=== PATIENT | female | born 1955 | race Caucasian/White ===

== ENCOUNTER 2018-02-13 10:36 | Inpatient (IN) | payer SELFPAY ==
[2018-02-13] MEDS ORDERED: IPRATROPIUM/ALBUTEROL 0.5-2.5 MG/3 ML AMPUL NEB ONE (10:57)
--- NOTE | 2018-02-13 11:00 | ER Document Report ---
ED General - General Chief Complaint: Cough Stated Complaint: SHORTHNESS OF BREATH Time Seen by Provider: 02/13/18 10:40 Mode of Arrival: Ambulatory Information source: Patient Notes: 62-year-old female history of asthma presents with complaints of shortness of breath over the past few days. Patient notes productive cough. Patient took a breathing treatment at home was given to by EMS. She denies any fevers or chills notes she has never been admitted for her asthma TRAVEL OUTSIDE OF THE [place] IN LAST 30 DAYS: No - HPI Onset: Other - 2-3 day duration Onset/Duration: Persistent, Worse Quality of pain: Achy Severity: Mild Pain Level: 1 Associated symptoms: Nonproductive cough, Shortness of breath Exacerbated by: Coughing Relieved by: Denies Similar symptoms previously: No Recently seen / treated by doctor: Yes - Patient has been seen for laceration left leg - Related Data Allergies/Adverse Reactions: No Known Allergies Allergy (Unverified 02/13/18 11:21) Past Medical History - Social History Smoking Status: Never Smoker Cigarette use (# per day): No Chew tobacco use (# tins/day): No Smoking Education Provided: No Family History: Reviewed & Not Pertinent Review of Systems - Review of Systems Notes: REVIEW OF SYSTEMS: CONSTITUTIONAL : Denies fever, chills, or sweats. Denies recent illness. EENT: Denies eye, ear, throat, or mouth pain or symptoms. Denies nasal or sinus congestion or discharge. Denies throat, tongue, or mouth swelling or difficulty swallowing. CARDIOVASCULAR: Denies chest pain. Denies palpitations or racing or irregular heart beat. Denies ankle edema. RESPIRATORY: Miss shortness breath wheezing cough GASTROINTESTINAL: Denies abdominal pain or distention. Denies nausea, vomiting , or diarrhea. Denies blood in vomitus, stools, or per rectum. Denies black, tarry stools. Denies constipation. GENITOURINARY: Denies difficulty urinating, painful urination, burning, frequency, blood in urine, or discharge. FEMALE GENITOURINARY: Denies vaginal bleeding, heavy or abnormal periods, irregular periods. Denies vaginal discharge or odor. MUSCULOSKELETAL: Denies back or neck pain or stiffness. Denies joint pain or swelling. SKIN: Denies rash, lesions or sores. HEMATOLOGIC : Denies easy bruising or bleeding. LYMPHATIC: Denies swollen, enlarged glands. NEUROLOGICAL: Denies confusion or altered mental status. Denies passing out or loss of consciousness. Denies dizziness or lightheadedness. Denies headache. Denies weakness or paralysis or loss of use of either side. Denies problems with gait or speech. Denies sensory loss, numbness, or tingling. Denies seizures. PSYCHIATRIC: Denies anxiety or stress. Denies depression, suicidal ideation, or homicidal ideation. ALL OTHER SYSTEMS REVIEWED AND NEGATIVE. PHYSICAL EXAMINATION: GENERAL: Well-appearing, well-nourished and in no acute distress. HEAD: Atraumatic, normocephalic. EYES: Pupils equal round and reactive to light, extraocular movements intact, conjunctiva are normal. ENT: Nares patent, oropharynx clear without exudates. Moist mucous membranes. NECK: Normal range of motion, supple without lymphadenopathy LUNGS: Worse wheezing all throughout patient satting anywhere between 90% to 95% HEART: Regular rate and rhythm without murmurs ABDOMEN: Soft, nontender, nondistended abdomen. No guarding, no rebound. No masses appreciated. Female : deferred Musculoskeletal: Normal range of motion, no pitting or edema. No cyanosis. NEUROLOGICAL: Cranial nerves grossly intact. Normal speech, normal gait. Normal sensory, motor exams PSYCH: Normal mood, normal affect. SKIN: Warm, Dry, normal turgor, no rashes or lesions noted. Dictation was performed using [employer] voice recognition software Physical Exam - Vital signs Vitals: Resp Pulse Ox 24 H 93 02/13/18 10:45 02/13/18 10:45 Course - Re-evaluation Re-evalutation: 02/13/18 11:00 Dyspnea workup pending patient is resting comfortably but her O2 sats do drop to 90%, after clearing her self it does go up to 95 02/13/18 12:08 pt already given solumedrol, ambulated satting 84% pt to be admitted ot hospitalist service - Vital Signs Vital signs: Temp Pulse Resp BP Pulse Ox 98.6 F 17 128/75 H 90 L 02/13/18 11:21 02/13/18 11:01 02/13/18 11:00 02/13/18 11:01 - Laboratory Result Diagrams: 02/13/18 10:50 02/13/18 10:50 Laboratory results interpreted by me: 02/13/18 02/13/18 02/13/18 10:50 10:50 11:30 WBC 11.9 H RDW 14.2 H Seg Neutrophils % 89.0 H Lymphocytes % 6.2 L Absolute Neutrophils 10.6 H Sodium 145.7 H Glucose 144 H Ur Leukocyte Esterase TRACE H Urine Ascorbic Acid 20 H - Diagnostic Test Radiology reviewed: Image reviewed - copd exacerbation 2 view chest xray, Reports reviewed Critical Care Note - Critical Care Note Total time excluding time spent on procedures (mins): 34 Comments: minutes of critical care time spent in direct contact evaluating and reevaluating the patient, treating symptoms, reviewing labs and studies and speaking with family and consultants excluding any procedures Discharge - Discharge Clinical Impression: COPD exacerbation, Hypoxemia Condition: Stable Admitting Provider: Hospitalist Unit Admitted: Medical Floor
[2018-02-13 11:12] LABS: ABSOLUTE BASOPHILS # (AUTO) 0.1 10^3/uL (0.0-0.2); ABSOLUTE LYMPHOCYTES (AUTO) 0.7 10^3/uL (0.5-4.7); ABSOLUTE MONOCYTES (AUTO) 0.5 10^3/uL (0.1-1.4); ABSOLUTE NEUT (AUTO) 10.6 10^3/uL (1.7-8.2); BASOPHILS % (AUTO) 0.5 % (0-2); EOSINOPHILS % (AUTO) 0.1 % (0-6); LYMPHOCYTES % (AUTO) 6.2 % (13-45); MEAN CORPUSCULAR HEMOGLOBIN 30.6 pg (27.0-33.4); MEAN CORPUSCULAR HGB CONC 32.4 g/dL (32.0-36.0); MEAN CORPUSCULAR VOLUME 95 fl (80-97); MONOCYTES % (AUTO) 4.2 % (3-13); PLATELET COUNT 307 10^3/uL (150-450); RED BLOOD COUNT 3.91 10^6/uL (3.72-5.28); RED CELL DISTRIBUTION WIDTH 14.2 % (11.5-14.0); TOTAL CELLS COUNTED % (AUTO) 100 %; WHITE BLOOD COUNT 11.9 10^3/uL (4.0-10.5)
--- NOTE | 2018-02-13 11:25 | RADIOLOGY REPORT (SQ) ---
EXAM DESCRIPTION: CHEST SINGLE VIEW COMPLETED DATE/TIME: 02/13/2018 11:14 am REASON FOR STUDY: dyspnea COMPARISON: None. NUMBER OF VIEWS: One view. TECHNIQUE: Single frontal radiographic view of the chest acquired. LIMITATIONS: None. FINDINGS: LUNGS AND PLEURA: No opacities, masses or pneumothorax. No pleural effusion. Attenuated bl ood vessels and flattened cherelle-diaphragms. MEDIASTINUM AND HILAR STRUCTURES: No masses. Contour normal. HEART AND VASCULAR STRUCTURES: Heart normal in size. Normal vasculature. BONES: No acute findings. HARDWARE: None in the chest. OTHER: No other significant finding. IMPRESSION: COPD. NO ACUTE RADIOGRAPHIC FINDING IN THE CHEST. TECHNICAL DOCUMENTATION: JOB ID: [id number] [employer]- All Rights Reserved Reading location - IP/workstation name: [email or web address]
[2018-02-13 11:36] LABS: ALANINE AMINOTRANSFERASE 25 U/L (9-52); ALBUMIN 4.5 g/dL (3.5-5.0); ALKALINE PHOSPHATASE 80 U/L (38-126); ANION GAP 19 (5-19); ASPARTATE AMINO TRANSFERASE 26 U/L (14-36); BILIRUBIN,DIRECT 0.4 mg/dL (0.0-0.4); BILIRUBIN,TOTAL 0.4 mg/dL (0.2-1.3); BLOOD UREA NITROGEN 16 mg/dL (7-20); CALCIUM 9.9 mg/dL (8.4-10.2); CARBON DIOXIDE 24 mmol/L (22-30); CHLORIDE 103 mmol/L (98-107); CREATINE KINASE 65 U/L (30-135); GLUCOSE 144 mg/dL (75-110); POTASSIUM 4.6 mmol/L (3.6-5.0); SODIUM 145.7 mmol/L (137-145)
[2018-02-13 12:00] LABS: CREATINE KINASE MB 1.11 ng/mL (<4.55); NT PRO BNP 171 pg/mL (5-900)
[2018-02-13 12:00] LABS: APPEARANCE,URINE CLEAR; BILIRUBIN,URINE NEGATIVE (NEGATIVE); COLOR,URINE YELLOW; GLUCOSE, URINE NEGATIVE (NEGATIVE); KETONES,URINE NEGATIVE (NEGATIVE); LEUKOCYTE ESTERASE,URINE TRACE (NEGATIVE); NITRITE,URINE NEGATIVE (NEGATIVE); PROTEIN,URINE NEGATIVE (NEGATIVE); URINE SPECIFIC GRAVITY 1.016; UROBILINOGEN,URINE NEGATIVE mg/dL (<2.0)
[2018-02-13 12:01] LABS: TROPONIN I < 0.012 ng/mL
[2018-02-13] MEDS ORDERED: METHYLPREDNISOLONE INJ 125 MG/2 ML SDV IV ONE (12:05)
[2018-02-13] MEDS ORDERED: ACETAMINOPHEN 325 MG TABLET PO PRN (12:08)
[2018-02-13] MEDS ORDERED: BENZONATATE 100 MG CAPSULE PO PRN (12:08)
[2018-02-13] MEDS ORDERED: OXYCODONE-ACETAMINOPHEN 5-325 MG TABLET PO PRN (12:08)
[2018-02-13] MEDS ORDERED: ONDANSETRON HCL INJ/PF 4 MG/2 ML SDV IV PRN (12:08)
[2018-02-13] MEDS ORDERED: DEXTROSE 50%-WATER 25 GM/50 ML DISP.SYRIN IV PRN ×2 (12:18)
[2018-02-13] MEDS ORDERED: GLUCAGON,HUMAN RECOMB 1 MG INJ IM PRN (12:18)
[2018-02-13] MEDS ORDERED: DEXTROSE 40% GEL 15 GM TUBE PO PRN ×2 (12:18)
--- NOTE | 2018-02-13 13:04 | PDOC H&P ---
History of Present Illness Admission Date/PCP: February 13, 2018 [facility] Patient complains of: Shortness of breath since midnight History of Present Illness: JOB VARGAS is a 62 year old female arrived to ED via ambulance complaining of shortness of breath which started at midnight. Patient states that she woke up having problems breathing and she had to lean forward in order to be able to breath. She did a nebulizer treatment and also used her inhaler. The rescue squad was called into the house. By the time the rescue squad arrived patient was feeling better and she declined to come to the hospital. Despite shortness of breath progressed and called 911 because she was not going to be able to make it to her PCPs office. Patient admits that for the past 2 days she had been having productive cough of whitish phlegm and some runny nose. She admits history of asthma since she was a child. She smokes off and on. May smoke from 1/2-1 pack per day. She started using a nicotine patch since yesterday. When patient was evaluated in the emergency room she was saturating 91% at 2 L of nasal cannula. Patient was treated with 3 duo nebs. Unfortunately upon ambulation patient desaturated to 84%. Patient denies using oxygen at home. She admits history of diabetes and high blood pressure. Since patient was requiring oxygen and was still short of breath the hospitalist service was consulted and prompted to admit. Past Medical History Cardiac Medical History: Reports: Hypertension Pulmonary Medical History: Reports: Asthma EENT Medical History: Reports: None Neurological Medical History: Reports: None Endocrine Medical History: Reports: Diabetes Mellitus Type 2 Renal/ Medical History: Reports: None Malignancy Medical History: Reports: None GI Medical History: Reports: None Musculoskeltal Medical History: Reports: None Skin Medical History: Reports: None Psychiatric Medical History: Reports: Tobacco Dependency Hematology: Reports: None Infectious Medical History: Reports: None Past Surgical History Past Surgical History: Reports: Tubal Ligation Social History Information Source: Patient Lives with: Spouse/Significant other Smoking Status: Current Every Day Smoker Cigarettes Packs Per Day: 14 Frequency of Alcohol Use: None Hx Recreational Drug Use: Yes Hx Prescription Drug Abuse: Yes - Advance Directive Resuscitation Status: Full Code Family History Family History: DM, Hypertension Parental Family History Reviewed: Yes Children Family History Reviewed: Yes Sibling(s) Family History Reviewed.: Yes Medication/Allergy Home Medications: Albuterol Sulfate [Proair HFA] 1 puff IH DAILY 02/13/18 Atenolol 1 tab PO QAM 02/13/18 Benzonatate 2 cap PO TID 02/13/18 Cetirizine HCl 1 tab PO DAILY 02/13/18 Cyclobenzaprine HCl 1 tab PO DAILY PRN 02/13/18 Enalapril Maleate [Vasotec] 1 tab PO DAILY 02/13/18 Fluticasone Propionate [Flonase Allergy Relief] 1 spray IH DAILY 02/13/18 Glipizide [Glipizide ER] 1 tab PO 02/13/18 Metformin HCl 1 tab PO BID 02/13/18 Montelukast Sodium 1 tab PO DAILY 02/13/18 Pravastatin Sodium 1 tab PO QPM 02/13/18 Prednisolone 1 tab PO BID 02/13/18 Sulfamethoxazole/Trimethoprim [Bactrim Ds Tablet] 1 tab PO BID 02/13/18 Allergies/Adverse Reactions: No Known Allergies Allergy (Unverified 02/13/18 11:21) Review of Systems Constitutional: ABSENT: chills, headache(s), night sweats Ears: ABSENT: hearing changes Cardiovascular: ABSENT: chest pain, dyspnea on exertion, edema, palpitations Respiratory: PRESENT: cough, dyspnea Gastrointestinal: ABSENT: abdominal pain, nausea, vomiting Genitourinary: ABSENT: dysuria, hematuria Musculoskeletal: ABSENT: back pain, joint swelling Integumentary: ABSENT: diaphoresis, pruritus Neurological: ABSENT: confusion, frequent falls Psychiatric: ABSENT: anxiety, depression Endocrine: ABSENT: polydipsia, polyphagia, polyuria Physical Exam Vital Signs: Temp Pulse Resp BP Pulse Ox 98.6 F 17 128/75 H 90 L 02/13/18 11:21 02/13/18 11:01 02/13/18 11:00 02/13/18 11:01 Intake & Output 02/12/18 02/13/18 02/14/18 06:59 06:59 06:59 Weight 63.503 kg General appearance: PRESENT: no acute distress, cooperative, well-developed, well-nourished Head exam: PRESENT: atraumatic, normocephalic Eye exam: PRESENT: conjunctiva pink, EOMI, PERRLA Ear exam: PRESENT: normal external ear exam Mouth exam: PRESENT: moist Neck exam: PRESENT: full ROM. ABSENT: JVD, lymphadenopathy, tenderness, thyromegaly Respiratory exam: PRESENT: crackles - Current crackles left-sided, decreased breath sounds Cardiovascular exam: PRESENT: RRR. ABSENT: diastolic murmur, systolic murmur Vascular exam: PRESENT: normal capillary refill GI/Abdominal exam: PRESENT: normal bowel sounds, soft. ABSENT: tenderness Extremities exam: PRESENT: full ROM. ABSENT: pedal edema Musculoskeletal exam: PRESENT: ambulatory Neurological exam: PRESENT: alert, awake, oriented to person, oriented to place , oriented to time, oriented to situation, CN II-XII grossly intact Psychiatric exam: PRESENT: appropriate affect, normal mood Skin exam: PRESENT: normal color Results Laboratory Results: 02/13/18 10:50 02/13/18 10:50 02/13/18 02/13/18 02/13/18 10:50 10:50 11:30 WBC 11.9 H RBC 3.91 Hgb 12.0 Hct 37.0 MCV 95 MCH 30.6 MCHC 32.4 RDW 14.2 H Plt Count 307 Seg Neutrophils % 89.0 H Lymphocytes % 6.2 L Monocytes % 4.2 Eosinophils % 0.1 Basophils % 0.5 Absolute Neutrophils 10.6 H Absolute Lymphocytes 0.7 Absolute Monocytes 0.5 Absolute Eosinophils 0.0 Absolute Basophils 0.1 Sodium 145.7 H Potassium 4.6 Chloride 103 Carbon Dioxide 24 Anion Gap 19 BUN 16 Creatinine 0.68 Est GFR ( Amer) > 60 Est GFR (Non-Af Amer) > 60 Glucose 144 H Calcium 9.9 Total Bilirubin 0.4 AST 26 ALT 25 Alkaline Phosphatase 80 Total Protein 7.0 Albumin 4.5 Urine Color YELLOW Urine Appearance CLEAR Urine pH 6.0 Ur Specific [place] 1.016 Urine Protein NEGATIVE Urine Glucose (UA) NEGATIVE Urine Ketones NEGATIVE Urine Blood NEGATIVE Urine Nitrite NEGATIVE Ur Leukocyte Esterase TRACE H Urine WBC (Auto) 6 Urine RBC (Auto) 12 02/13/18 02/13/18 10:50 10:50 Creatine Kinase 65 CK-MB (CK-2) 1.11 Troponin I < 0.012 NT-Pro-B Natriuret Pep 171 Impressions: Chest X-Ray 02/13/18 10:41 IMPRESSION: COPD. NO ACUTE RADIOGRAPHIC FINDING IN THE CHEST. Assessment & Plan - Diagnosis (1) Acute respiratory failure Qualifiers: Respiratory failure complication: hypoxia Qualified Code(s): J96.01 - Acute respiratory failure with hypoxia Is this a current diagnosis for this admission?: Yes Plan: We will continue with oxygen supplementation and will wean off as tolerated (2) COPD exacerbation Is this a current diagnosis for this admission?: Yes Plan: Patient will be placed on DuoNeb's, Mucinex, IV steroids and Singulair (3) Tobacco abuse Is this a current diagnosis for this admission?: Yes Plan: Educated about quitting and motivated. She is already using a nicotine patch and will continue (4) Diabetes Qualifiers: Diabetes mellitus type: type 2 Diabetes mellitus jail insulin use: without jail use Diabetes mellitus complication status: without complication Qualified Code(s): E11.9 - Type 2 diabetes mellitus without complications Is this a current diagnosis for this admission?: Yes Plan: Patient will be placed on Humalog sliding scale with bedside glucose before meals and at bedtime (5) HTN (hypertension) Qualifiers: Hypertension type: essential hypertension Qualified Code(s): I10 - Essential (primary) hypertension Is this a current diagnosis for this admission?: Yes Plan: Will continue with outpatient regimen once available to reconcile (6) History of asthma Is this a current diagnosis for this admission?: Yes Plan: Patient carries a history of asthma since childhood. Patient having some symptoms suggestive of allergy related symptoms. Will continue antihistaminic and will add Singulair. After carefully listened to the patient appears to be a COPD exacerbation which is a new diagnosis for this patient and is present in chest x-ray - Time Time Spent: 30 to 50 Minutes Medications reviewed and adjusted accordingly: Yes Anticipated discharge: Home Within: within 48 hours - Inpatient Certification Based on my medical assessment, after consideration of the patient's comorbidities, presenting symptoms, or acuity I expect that the services needed warrant INPATIENT care.: Yes I certify that my determination is in accordance with my understanding of Medicare's requirements for reasonable and necessary INPATIENT services [42 CFR 412.3e].: Yes Medical Necessity: Significant Comorbidiites Make Outpatient Treatment Too Risky , Need Close Monitoring Due to Risk of Patient Decompensation, Need for Nebulizer Therapy and Monitoring of Response
[2018-02-13] MEDS ORDERED: NICOTINE 14 MG/24 HR PATCH.TD24 TD ONE (13:30)
[2018-02-13] MEDS ORDERED: LORATADINE 10 MG TABLET PO ONE (14:00)
[2018-02-13] MEDS: IPRATROPIUM/ALBUTEROL 0.5-2.5 MG/3 ML AMPUL NEB SCH ×2 (14:01→19:43)
[2018-02-13] MEDS: INSULIN LISPRO 100 UNIT/ML 3 ML VIAL SUBCUT PRN ×3 (14:02→23:01)
[2018-02-13] MEDS: HEPARIN SOD (PORCINE) 5,000 UNIT/ML 1 ML SYRINGE SUBCUT SCH ×2 (14:02→22:45)
[2018-02-13] MEDS: ALBUTEROL SULFATE 0.083% NEB 2.5 MG/3 ML AMPUL NEB PRN (16:41)
--- NOTE | 2018-02-13 18:20 | RADIOLOGY REPORT (SQ) ---
EXAM DESCRIPTION: CT CHEST WITHOUT COMPLETED DATE/TIME: 02/13/2018 6:07 pm REASON FOR STUDY: hypoxia COMPARISON: Chest radiograph TECHNIQUE: CT scan performed of the chest without intravenous contrast. Images reviewed with lung, soft tissue and bone windows. Reconstructed coronal and sagittal MPR images reviewed. All images st ored on PACS. All CT scanners at this facility use dose modulation, iterative reconstruction, and/or weight based d osing when appropriate to reduce radiation dose to as low as reasonably achievable (ALARA). [facility]: Dose Right [facility]: CareDose [facility]: Dose Right [facility]: Teradose 4D [facility]: Smart Ensogo RADIATION DOSE: CT Rad equipment meets quality standard of care and radiation dose reduction techniq ues were employed. CTDIvol: 5.0 mGy. DLP: 209 mGy-cm. mGy. LIMITATIONS: No technical limitations. FINDINGS: LUNGS AND PLEURA: No masses, infiltrates, pneumothorax. No pleural effusions, calcificati ons. HILAR AND MEDIASTINAL STRUCTURES: No identified masses or abnormal nodes. No obvious aneurysm. HEART AND VASCULAR STRUCTURES: No aneurysm. No pericardial effusion. UPPER ABDOMEN: No significant findings. Limited exam. THYROID AND OTHER SOFT TISSUES: No masses. No adenopathy. BONES: No significant finding. HARDWARE: None in the chest. OTHER: No other significant findings. IMPRESSION: NO SIGNIFICANT FINDING ON NON-CONTRASTED CHEST CT. TECHNICAL DOCUMENTATION: JOB ID: [id number] Quality ID # [id number]: Final reports with documentation of one or more dose reduction techniques (e.g., Au tomated exposure control, adjustment of the mA and/or kV according to patient size, use of iterative reconstruction technique) 2010 [employer]- All Rights Reserved Reading location - IP/workstation name: [email or web address]
[2018-02-13] MEDS: GUAIFENESIN 600 MG TABLET.SA PO SCH (18:38)
--- NOTE | 2018-02-13 21:38 | EKG REPORT ---
SEVERITY:- ABNORMAL ECG - SINUS TACHYCARDIA CONSIDER ANTEROSEPTAL INFARCT : Confirmed by: Debbie Orlando 13-Feb-2018 21:38:04
[2018-02-13] MEDS: METHYLPREDNISOLONE INJ 40 MG/1 ML SDV IV SCH (22:45)
[2018-02-13] MEDS: MONTELUKAST SODIUM 10 MG TABLET PO SCH (22:45)
[2018-02-13] MEDS: ZOLPIDEM TARTRATE 5 MG TABLET PO PRN (23:01)
[2018-02-14] MEDS: ALBUTEROL SULFATE 0.083% NEB 2.5 MG/3 ML AMPUL NEB PRN ×2 (01:59→04:10)
[2018-02-14] MEDS: METHYLPREDNISOLONE INJ 40 MG/1 ML SDV IV SCH ×2 (06:26→22:54)
[2018-02-14] MEDS: HEPARIN SOD (PORCINE) 5,000 UNIT/ML 1 ML SYRINGE SUBCUT SCH ×3 (06:27→22:54)
[2018-02-14 08:10] LABS: ANION GAP 14 (5-19); BLOOD UREA NITROGEN 21 mg/dL (7-20); CALCIUM 10.2 mg/dL (8.4-10.2); CARBON DIOXIDE 26 mmol/L (22-30); CHLORIDE 102 mmol/L (98-107); GLUCOSE 166 mg/dL (75-110); SODIUM 141.9 mmol/L (137-145)
[2018-02-14] MEDS: IPRATROPIUM/ALBUTEROL 0.5-2.5 MG/3 ML AMPUL NEB SCH ×3 (08:15→20:11)
[2018-02-14] MEDS: INSULIN LISPRO 100 UNIT/ML 3 ML VIAL SUBCUT PRN ×4 (08:18→23:24)
[2018-02-14 08:30] LABS: HEMATOCRIT 35.8 % (36.0-47.0); HEMOGLOBIN 11.7 g/dL (12.0-15.5); MEAN CORPUSCULAR HEMOGLOBIN 30.8 pg (27.0-33.4); MEAN CORPUSCULAR HGB CONC 32.6 g/dL (32.0-36.0); MEAN CORPUSCULAR VOLUME 94 fl (80-97); PLATELET COUNT 301 10^3/uL (150-450); RED CELL DISTRIBUTION WIDTH 14.2 % (11.5-14.0); WHITE BLOOD COUNT 15.3 10^3/uL (4.0-10.5)
[2018-02-14 09:04] LABS: ABSOLUTE LYMPHOCYTES# (MANUAL) 0.3 10^3/uL (0.5-4.7); ABSOLUTE MONOCYTES # (MANUAL) 0.6 10^3/uL (0.1-1.4); ABSOLUTE NEUTROPHILS# (MANUAL) 14.4 10^3/uL (1.7-8.2); BASOPHILS % (MANUAL) 0 % (0-2); EOSINOPHILS % (MANUAL) 0 % (0-6); LYMPHOCYTES % (MANUAL) 2 % (13-45); MONOCYTES % (MANUAL) 4 % (3-13); SEGMENTED NEUTROPHILS % (MAN) 94 % (42-78); TOTAL CELLS COUNTED 100
[2018-02-14 09:05] LABS: ANISOCYTOSIS SLIGHT; PLATELET COMMENT ADEQUATE; TOXIC GRANULATION 1+
[2018-02-14] MEDS: LORATADINE 10 MG TABLET PO SCH (09:31)
[2018-02-14] MEDS: GUAIFENESIN 600 MG TABLET.SA PO SCH ×2 (09:31→17:07)
[2018-02-14] MEDS: NICOTINE 14 MG/24 HR PATCH.TD24 TD PRN (10:44)
[2018-02-14] MEDS: AMLODIPINE BESYLATE 5 MG TABLET PO SCH (11:48)
--- NOTE | 2018-02-14 16:29 | PDOC PROGRESS REPORT ---
Subjective Progress Note for:: 02/14/18 Subjective:: Patient relates that her breathing is getting better. All patient questions answered eg. treatment of oral versus insulin for diabetes Reason For Visit: ACUTE RESPIRATORY FAILURE, ASTHMA EXACERBATION Physical Exam Vital Signs: Temp Pulse Resp BP Pulse Ox 97.5 F 104 H 18 143/75 H 96 02/14/18 03:00 02/14/18 04:10 02/14/18 04:10 02/14/18 03:00 02/14/18 04:10 Pulse Oximeter Continuous Start: 02/13/18 12: 41 Freq: RTQ4 Status: Active Document 02/14/18 04:10 CMI (Rec: 02/14/18 04:26 [email or web address] [email or web address]) Pulse Oximetry Assessment Oxygen Saturation (92-100) 96 Oxygen Flow Rate (L/min) 2 Oxygen Delivery Method Nasal Cannula Fraction of Inspired Oxygen (FIO2) 28 Equipment Usage Equipment in Use Continuous SpO2 Machine # [id number] Intake & Output 02/13/18 02/14/18 02/15/18 06:59 06:59 06:59 Intake Total 240 Balance 240 Weight 63.9 kg Results Impressions: Chest CT 02/13/18 00:00 IMPRESSION: NO SIGNIFICANT FINDING ON NON-CONTRASTED CHEST CT. Chest X-Ray 02/13/18 10:41 IMPRESSION: COPD. NO ACUTE RADIOGRAPHIC FINDING IN THE CHEST. Assessment & Plan - Diagnosis (1) Acute respiratory failure Qualifiers: Respiratory failure complication: hypoxia Qualified Code(s): J96.01 - Acute respiratory failure with hypoxia Is this a current diagnosis for this admission?: Yes Plan: We will continue with oxygen supplementation and will wean off as tolerated (2) COPD exacerbation Is this a current diagnosis for this admission?: Yes Plan: Will continue duo nebs. Will decrease IV steroids. To start Advair (3) Tobacco abuse Is this a current diagnosis for this admission?: Yes Plan: Educated about quitting and motivated. Patient is motivated to quit. For now declining oral medication to help with quitting (4) Diabetes Qualifiers: Diabetes mellitus type: type 2 Diabetes mellitus senior care insulin use: without oil heaterman use Diabetes mellitus complication status: without complication Qualified Code(s): E11.9 - Type 2 diabetes mellitus without complications Is this a current diagnosis for this admission?: Yes Plan: Continue Humalog sliding scale with bedside glucose before meals and at bedtime. Patient made aware that upon discharge will continue on metformin (5) HTN (hypertension) Qualifiers: Hypertension type: essential hypertension Qualified Code(s): I10 - Essential (primary) hypertension Is this a current diagnosis for this admission?: Yes Plan: Decrease atenolol. Continue Vasotec and start Norvasc (6) History of asthma Is this a current diagnosis for this admission?: Yes Plan: Patient carries a history of asthma since childhood. Patient having some symptoms suggestive of allergy related symptoms. Will continue antihistaminic and Singulair. After carefully listening to the patient appears to be a COPD exacerbation which is a new diagnosis for this patient and is present in chest x -ray - Time Time Spent with patient: 15-24 minutes Medications reviewed and adjusted accordingly: Yes Anticipated discharge: Home Within: within 48 hours - Inpatient Certification Based on my medical assessment, after consideration of the patient's comorbidities, presenting symptoms, or acuity I expect that the services needed warrant INPATIENT care.: Yes I certify that my determination is in accordance with my understanding of Medicare's requirements for reasonable and necessary INPATIENT services [42 CFR 412.3e].: Yes Medical Necessity: Need Close Monitoring Due to Risk of Patient Decompensation, Need for Nebulizer Therapy and Monitoring of Response
[2018-02-14] MEDS: FLUTICASONE/SALMETEROL DISKUS 250-50 MCG/DOSE IH SCH (22:55)
[2018-02-14] MEDS: MONTELUKAST SODIUM 10 MG TABLET PO SCH (22:55)
[2018-02-14] MEDS: ZOLPIDEM TARTRATE 5 MG TABLET PO PRN (23:24)
[2018-02-15] MEDS: HEPARIN SOD (PORCINE) 5,000 UNIT/ML 1 ML SYRINGE SUBCUT SCH ×3 (06:02→22:41)
[2018-02-15 06:09] LABS: HEMATOCRIT 34.4 % (36.0-47.0); HEMOGLOBIN 11.3 g/dL (12.0-15.5); MEAN CORPUSCULAR HEMOGLOBIN 30.9 pg (27.0-33.4); MEAN CORPUSCULAR HGB CONC 32.7 g/dL (32.0-36.0); MEAN CORPUSCULAR VOLUME 94 fl (80-97); PLATELET COUNT 274 10^3/uL (150-450); RED BLOOD COUNT 3.65 10^6/uL (3.72-5.28); RED CELL DISTRIBUTION WIDTH 14.4 % (11.5-14.0); WHITE BLOOD COUNT 12.2 10^3/uL (4.0-10.5)
[2018-02-15] MEDS: ALBUTEROL SULFATE 0.083% NEB 2.5 MG/3 ML AMPUL NEB PRN ×2 (06:09→16:56)
[2018-02-15 06:42] LABS: ANION GAP 12 (5-19); BLOOD UREA NITROGEN 26 mg/dL (7-20); CALCIUM 9.8 mg/dL (8.4-10.2); CARBON DIOXIDE 25 mmol/L (22-30); CHLORIDE 103 mmol/L (98-107); GLUCOSE 217 mg/dL (75-110); SODIUM 140.4 mmol/L (137-145)
[2018-02-15 06:59] LABS: ABSOLUTE LYMPHOCYTES# (MANUAL) 0.6 10^3/uL (0.5-4.7); ABSOLUTE MONOCYTES # (MANUAL) 0.4 10^3/uL (0.1-1.4); ABSOLUTE NEUTROPHILS# (MANUAL) 11.2 10^3/uL (1.7-8.2); BASOPHILS % (MANUAL) 0 % (0-2); EOSINOPHILS % (MANUAL) 0 % (0-6); LYMPHOCYTES % (MANUAL) 3 % (13-45); MONOCYTES % (MANUAL) 3 % (3-13); SEGMENTED NEUTROPHILS % (MAN) 92 % (42-78); TOTAL CELLS COUNTED 100
[2018-02-15 07:00] LABS: ANISOCYTOSIS SLIGHT
[2018-02-15 07:01] LABS: PLATELET COMMENT ADEQUATE; TOXIC GRANULATION SLIGHT
[2018-02-15] MEDS: INSULIN LISPRO 100 UNIT/ML 3 ML VIAL SUBCUT PRN ×4 (07:39→22:41)
[2018-02-15] MEDS: IPRATROPIUM/ALBUTEROL 0.5-2.5 MG/3 ML AMPUL NEB SCH ×3 (07:55→20:28)
[2018-02-15] MEDS ORDERED: (PENDING PHARMACY ID) (Atenolol [Atenolol] 100 MG) PO SCH (08:00)
[2018-02-15] MEDS: ASPIRIN 81 MG TABLET, ENT COATED PO SCH (09:05)
[2018-02-15] MEDS: GUAIFENESIN 600 MG TABLET.SA PO SCH ×2 (09:05→17:00)
[2018-02-15] MEDS: LORATADINE 10 MG TABLET PO SCH (09:05)
[2018-02-15] MEDS: ENALAPRIL MALEATE 5 MG TABLET PO SCH (09:05)
[2018-02-15] MEDS: METHYLPREDNISOLONE INJ 40 MG/1 ML SDV IV SCH (09:05)
[2018-02-15] MEDS: FLUTICASONE/SALMETEROL DISKUS 250-50 MCG/DOSE IH SCH ×2 (09:07→22:41)
[2018-02-15] MEDS: PREDNISONE 20 MG TABLET PO SCH (10:26)
[2018-02-15] MEDS: AMLODIPINE BESYLATE 5 MG TABLET PO SCH (11:05)
[2018-02-15] MEDS ORDERED: ATENOLOL 50 MG TABLET PO SCH ×2 (12:00→14:00)
--- NOTE | 2018-02-15 17:53 | PDOC PROGRESS REPORT ---
Subjective Progress Note for:: 02/15/18 Subjective:: Patient reports that her breathing is a lot better. 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 Review of system All organ systems evaluated and negative except as in subjective All laboratories and significant diagnostics have been reviewed Reason For Visit: ACUTE RESPIRATORY FAILURE, ASTHMA EXACERBATION Physical Exam Vital Signs: Temp Pulse Resp BP Pulse Ox 98.8 F 93 18 135/59 H 94 02/15/18 07:11 02/15/18 07:11 02/15/18 07:11 02/15/18 07:11 02/15/18 07:11 Pulse Oximeter Continuous Start: 02/13/18 12: 41 Freq: RTQ4 Status: Active Document 02/15/18 04:30 EST (Rec: 02/15/18 04:31 EST [email or web address]) Pulse Oximetry Assessment Oxygen Saturation (92-100) 98 Oxygen Flow Rate (L/min) 2 Oxygen Delivery Method Nasal Cannula Fraction of Inspired Oxygen (FIO2) 28 Equipment Usage Equipment in Use Continuous SpO2 Machine # 13 Intake & Output 02/14/18 02/15/18 02/16/18 06:59 06:59 06:59 Intake Total 240 480 Balance 240 480 Weight 63.9 kg 63.5 kg General appearance: PRESENT: no acute distress, cooperative, well-developed, well-nourished Head exam: PRESENT: atraumatic, normocephalic Eye exam: PRESENT: conjunctiva pink, EOMI, PERRLA Ear exam: PRESENT: normal external ear exam Mouth exam: PRESENT: moist Neck exam: PRESENT: full ROM. ABSENT: JVD, lymphadenopathy, tenderness Respiratory exam: PRESENT: clear to auscultation andres Cardiovascular exam: PRESENT: RRR. ABSENT: diastolic murmur, systolic murmur Vascular exam: PRESENT: normal capillary refill GI/Abdominal exam: PRESENT: normal bowel sounds, soft. ABSENT: tenderness Extremities exam: PRESENT: full ROM. ABSENT: joint swelling, pedal edema Musculoskeletal exam: PRESENT: ambulatory Neurological exam: PRESENT: alert, awake, oriented to person, oriented to place , oriented to time, oriented to situation, CN II-XII grossly intact Psychiatric exam: PRESENT: appropriate affect, normal mood Skin exam: PRESENT: intact, normal color Results Laboratory Results: 02/15/18 05:43 02/15/18 05:43 02/15/18 02/15/18 05:43 05:43 WBC 12.2 H RBC 3.65 L Hgb 11.3 L Hct 34.4 L MCV 94 MCH 30.9 MCHC 32.7 RDW 14.4 H Plt Count 274 Seg Neutrophils % Not Reportable Lymphocytes % Not Reportable Monocytes % Not Reportable Eosinophils % Not Reportable Basophils % Not Reportable Absolute Neutrophils Not Reportable Absolute Lymphocytes Not Reportable Absolute Monocytes Not Reportable Absolute Eosinophils Not Reportable Absolute Basophils Not Reportable Sodium 140.4 Potassium 5.0 Chloride 103 Carbon Dioxide 25 Anion Gap 12 BUN 26 H Creatinine 0.60 Est GFR ( Amer) > 60 Est GFR (Non-Af Amer) > 60 Glucose 217 H Calcium 9.8 Magnesium 2.0 Impressions: Chest CT 02/13/18 00:00 IMPRESSION: NO SIGNIFICANT FINDING ON NON-CONTRASTED CHEST CT. Chest X-Ray 02/13/18 10:41 IMPRESSION: COPD. NO ACUTE RADIOGRAPHIC FINDING IN THE CHEST. Assessment & Plan - Diagnosis (1) Acute respiratory failure Qualifiers: Respiratory failure complication: hypoxia Qualified Code(s): J96.01 - Acute respiratory failure with hypoxia Is this a current diagnosis for this admission?: Yes Plan: Discontinue oxygen and follow-up response (2) COPD exacerbation Is this a current diagnosis for this admission?: Yes Plan: Will continue duo nebs, Advair and to change IV steroids to oral prednisone (3) Tobacco abuse Is this a current diagnosis for this admission?: Yes Plan: Educated about quitting and motivated. Patient is very motivated to quit. For now declining oral medication to help with quitting. (4) Diabetes Qualifiers: Diabetes mellitus type: type 2 Diabetes mellitus quality process auditor insulin use: without penitentiary use Diabetes mellitus complication status: without complication Qualified Code(s): E11.9 - Type 2 diabetes mellitus without complications Is this a current diagnosis for this admission?: Yes Plan: Continue Humalog sliding scale with bedside glucose before meals and at bedtime. Patient made aware that upon discharge will continue on metformin (5) HTN (hypertension) Qualifiers: Hypertension type: essential hypertension Qualified Code(s): I10 - Essential (primary) hypertension Is this a current diagnosis for this admission?: Yes Plan: Continue current regimen since better control (6) History of asthma Is this a current diagnosis for this admission?: Yes Plan: Patient carries a history of asthma since childhood. Patient having some symptoms suggestive of allergy related symptoms. Will continue antihistaminic and Singulair. After carefully listening to the patient appears to be a COPD exacerbation which is a new diagnosis for this patient and is present in chest x -ray - Time Time Spent with patient: 15-24 minutes Medications reviewed and adjusted accordingly: Yes Anticipated discharge: Home Within: within 24 hours - Inpatient Certification Based on my medical assessment, after consideration of the patient's comorbidities, presenting symptoms, or acuity I expect that the services needed warrant INPATIENT care.: Yes I certify that my determination is in accordance with my understanding of Medicare's requirements for reasonable and necessary INPATIENT services [42 CFR 412.3e].: Yes Medical Necessity: Need Close Monitoring Due to Risk of Patient Decompensation, Need for Nebulizer Therapy and Monitoring of Response
[2018-02-15] MEDS: MONTELUKAST SODIUM 10 MG TABLET PO SCH (22:41)
[2018-02-15] MEDS: ZOLPIDEM TARTRATE 5 MG TABLET PO PRN (22:41)
[2018-02-16] MEDS: HEPARIN SOD (PORCINE) 5,000 UNIT/ML 1 ML SYRINGE SUBCUT SCH (06:21)
[2018-02-16 06:59] LABS: ABSOLUTE EOSINOPHILS # (AUTO) 0.1 10^3/uL (0.0-0.6); ABSOLUTE LYMPHOCYTES (AUTO) 3.1 10^3/uL (0.5-4.7); ABSOLUTE MONOCYTES (AUTO) 0.9 10^3/uL (0.1-1.4); ABSOLUTE NEUT (AUTO) 6.9 10^3/uL (1.7-8.2); BASOPHILS % (AUTO) 0.4 % (0-2); EOSINOPHILS % (AUTO) 0.5 % (0-6); HEMATOCRIT 35.3 % (36.0-47.0); HEMOGLOBIN 11.7 g/dL (12.0-15.5); LYMPHOCYTES % (AUTO) 28.5 % (13-45); MEAN CORPUSCULAR HEMOGLOBIN 31.1 pg (27.0-33.4); MEAN CORPUSCULAR HGB CONC 33.3 g/dL (32.0-36.0); MEAN CORPUSCULAR VOLUME 94 fl (80-97); MONOCYTES % (AUTO) 7.8 % (3-13); PLATELET COUNT 290 10^3/uL (150-450); RED BLOOD COUNT 3.78 10^6/uL (3.72-5.28); RED CELL DISTRIBUTION WIDTH 14.3 % (11.5-14.0); SEGMENTED NEUTROPHILS % (AUTO) 62.8 % (42-78); TOTAL CELLS COUNTED % (AUTO) 100 %; WHITE BLOOD COUNT 10.9 10^3/uL (4.0-10.5)
[2018-02-16 07:14] LABS: ANION GAP 11 (5-19); BLOOD UREA NITROGEN 24 mg/dL (7-20); CALCIUM 9.5 mg/dL (8.4-10.2); CARBON DIOXIDE 28 mmol/L (22-30); CHLORIDE 104 mmol/L (98-107); GLUCOSE 114 mg/dL (75-110); POTASSIUM 4.1 mmol/L (3.6-5.0); SODIUM 142.9 mmol/L (137-145)
[2018-02-16] MEDS: IPRATROPIUM/ALBUTEROL 0.5-2.5 MG/3 ML AMPUL NEB SCH (07:48)
[2018-02-16 09:03] VITALS: BP 137/66
[2018-02-16] MEDS: PREDNISONE 20 MG TABLET PO SCH (10:42)
[2018-02-16] MEDS: LORATADINE 10 MG TABLET PO SCH (10:42)
[2018-02-16] MEDS: ENALAPRIL MALEATE 5 MG TABLET PO SCH (10:43)
[2018-02-16] MEDS: NICOTINE 14 MG/24 HR PATCH.TD24 TD PRN (10:43)
[2018-02-16] MEDS: GUAIFENESIN 600 MG TABLET.SA PO SCH (10:43)
[2018-02-16] MEDS: FLUTICASONE/SALMETEROL DISKUS 250-50 MCG/DOSE IH SCH (10:43)
[2018-02-16] MEDS: ASPIRIN 81 MG TABLET, ENT COATED PO SCH (10:43)
--- NOTE | 2018-02-16 15:17 | PDOC DISCHARGE SUMMARY ---
General - Admit/Disc Date/PCP Admission Date/Primary Care Provider: 02/13/18 13:41 Discharge Date: 02/16/18 - Discharge Diagnosis (1) Acute respiratory failure Is this a current diagnosis for this admission?: Yes (2) COPD exacerbation Is this a current diagnosis for this admission?: Yes (3) Tobacco abuse Is this a current diagnosis for this admission?: Yes (4) Diabetes Is this a current diagnosis for this admission?: Yes (5) HTN (hypertension) Is this a current diagnosis for this admission?: Yes (6) History of asthma Is this a current diagnosis for this admission?: Yes - Additional Information Resuscitation Status: Full Code Discharge Diet: Cardiac, Diabetic Discharge Activity: Activity As Tolerated Prescriptions: Amlodipine Besylate [Norvasc 5 mg Tablet] 5 mg PO DAILY@1200 #30 tablet Benzonatate [Tessalon Perles 100 mg Capsule] 100 mg PO Q8HP PRN #30 capsule PRN Reason: Fluticasone/Salmeterol [Advair 250-50 Diskus 14 Dose/Diskus] 1 inh IH Q12 #60 inhaler Guaifenesin [Mucinex Sr 600 mg Tablet.sa] 600 mg PO BID #30 tablet.sa Nicotine [Nicoderm 14 mg/24 Hr Transdermal Patch] 1 each TD DAILYP PRN #30 patch.td24 PRN Reason: Prednisone [Deltasone 20 mg Tablet] 20 mg PO DAILY #5 tablet Home Medications: Albuterol Sulfate [Proair HFA] 2 puff IH Q4HP PRN 02/13/18 Aspirin [Aspirin EC] 81 mg PO DAILY 02/13/18 Cetirizine HCl 10 mg PO DAILY 02/13/18 Enalapril Maleate [Vasotec] 5 mg PO DAILY 02/13/18 Glipizide [Glipizide ER] 5 mg PO DAILY 02/13/18 Metformin HCl [Metformin HCl ER] 1,000 mg PO BID 02/13/18 Montelukast Sodium 10 mg PO DAILY 02/13/18 Pravastatin Sodium 40 mg PO QPM 02/13/18 Amlodipine Besylate [Norvasc 5 mg Tablet] 5 mg PO DAILY@1200 #30 tablet Atenolol 50 mg PO QAM #0 02/16/18 Benzonatate [Tessalon Perles 100 mg Capsule] 100 mg PO Q8HP PRN #30 capsule 04/29 Fluticasone/Salmeterol [Advair 250-50 Diskus 14 Dose/Diskus] 1 inh IH Q12 #60 inhaler 02/16/18 Guaifenesin [Mucinex Sr 600 mg Tablet.sa] 600 mg PO BID #30 tablet.sa 02/16/18 Nicotine [Nicoderm 14 mg/24 Hr Transdermal Patch] 1 each TD DAILYP PRN #30 patch.td24 02/16/18 Prednisone [Deltasone 20 mg Tablet] 20 mg PO DAILY #5 tablet 02/16/18 History of Present Illness History of Present Illness: JOB VARGAS is a 62 year old female arrived to ED via ambulance complaining of shortness of breath which started at midnight. Patient stated that she woke up having problems breathing and she had to lean forward in order to be able to breath. She did a nebulizer treatment and also used her inhaler. The rescue squad was called into the house. By the time the rescue squad arrived patient was feeling better and she declined to come to the hospital. Despite, shortness of breath progressed and called 911 because she was not going to be able to make it to her PCPs office. Patient admitted that for the past 2 days she had been having productive cough of whitish phlegm and some runny nose. She related history of asthma since she was a child. She smokes off and on. May smoke from 1/2-1 pack per day. She started using a nicotine patch since the day prior to presentation. When patient was evaluated in the emergency room she was saturating 91% at 2 L of nasal cannula. Patient was treated with 3 duo nebs. Unfortunately upon ambulation patient desaturated to 84%. Patient denied using oxygen at home. She admitted history of diabetes and high blood pressure. Since patient was requiring oxygen and was still short of breath the hospitalist service was consulted and prompted to admit. Hospital Course Hospital Course: Patient was admitted due to acute hypoxic respiratory failure secondary to acute exacerbation of COPD. Patient responded to treatment with nebulizer treatment, Mucinex and IV steroids. Patient was able to be weaned off by nasal cannula. Patient was saturating 94% at room air on the day of discharge patient has been educated about quitting smoking and she is very motivated. On discharge we added Advair to her regimen. Patient has been encouraged as to follow-up with her PCP if having increased use of pro-air or if any shortness of breath. We opted to decrease atenolol 50 mg p.o. daily, added Norvasc 5 mg 1 p.o. daily. Continued Vasotec as previously prescribed. Since patient had improved and had responded to treatment rendered prompted to discharge under stable condition. Physical Exam Vital Signs: Temp Pulse Resp BP Pulse Ox 98.1 F 80 17 137/66 H 90 L 02/16/18 08:30 02/16/18 08:30 02/16/18 08:30 02/16/18 08:30 02/16/18 08:30 Pulse Oximeter Continuous Start: 02/13/18 12: 41 Freq: RTQ4 Status: Active Document 02/16/18 07:52 JDR (Rec: 02/16/18 07:54 JDR [email or web address]) Pulse Oximetry Assessment Oxygen Saturation (92-100) 98 Oxygen Flow Rate (L/min) 1 Oxygen Delivery Method Nasal Cannula Equipment Usage Equipment in Use Continuous SpO2 Machine # 13 Intake & Output 02/15/18 02/16/18 02/17/18 06:59 06:59 06:59 Intake Total 480 480 Balance 480 480 Weight 63.5 kg 64.55 kg General appearance: PRESENT: no acute distress, cooperative, well-developed, well-nourished Head exam: PRESENT: normocephalic Eye exam: PRESENT: conjunctiva pink, EOMI, PERRLA Ear exam: PRESENT: normal external ear exam Mouth exam: PRESENT: moist Neck exam: PRESENT: full ROM. ABSENT: JVD, lymphadenopathy, tenderness Respiratory exam: PRESENT: other - Adequate movement of air bilaterally with soft crackles right-sided Cardiovascular exam: PRESENT: RRR. ABSENT: diastolic murmur, systolic murmur Vascular exam: PRESENT: normal capillary refill GI/Abdominal exam: PRESENT: normal bowel sounds, soft. ABSENT: tenderness Extremities exam: PRESENT: full ROM. ABSENT: pedal edema Musculoskeletal exam: PRESENT: ambulatory Neurological exam: PRESENT: alert, awake, oriented to person, oriented to place , oriented to time, CN II-XII grossly intact Psychiatric exam: PRESENT: appropriate affect, normal mood Skin exam: PRESENT: intact, normal color Results Laboratory Results: 02/16/18 06:44 02/16/18 06:44 02/16/18 02/16/18 06:44 06:44 WBC 10.9 H RBC 3.78 Hgb 11.7 L Hct 35.3 L MCV 94 MCH 31.1 MCHC 33.3 RDW 14.3 H Plt Count 290 Seg Neutrophils % 62.8 Lymphocytes % 28.5 Monocytes % 7.8 Eosinophils % 0.5 Basophils % 0.4 Absolute Neutrophils 6.9 Absolute Lymphocytes 3.1 Absolute Monocytes 0.9 Absolute Eosinophils 0.1 Absolute Basophils 0.0 Sodium 142.9 Potassium 4.1 Chloride 104 Carbon Dioxide 28 Anion Gap 11 BUN 24 H Creatinine 0.68 Est GFR ( Amer) > 60 Est GFR (Non-Af Amer) > 60 Glucose 114 H Calcium 9.5 Magnesium 2.1 Impressions: Chest CT 02/13/18 00:00 IMPRESSION: NO SIGNIFICANT FINDING ON NON-CONTRASTED CHEST CT. Chest X-Ray 02/13/18 10:41 IMPRESSION: COPD. NO ACUTE RADIOGRAPHIC FINDING IN THE CHEST. Qualifiers - * PATIENT BEING DISCHARGED WITH ANY OF THE FOLLOWING DIAGNOSIS: No Plan Discharge Plan: Discharge home. Patient to follow-up with primary care provider as scheduled Time Spent: Less than 30 Minutes
== END 2018-02-16 11:23 | disposition home or self-care (01) | DRG 189 ==
LOC: ER 10:36 → EH 13:41 → 2N 15:15
PROVIDERS: ADMIT Family Medicine; ATTEND Family Medicine
DX: J96.01 Acute respiratory failure with hypoxia (principal); J44.1 Chronic obstructive pulmonary disease with (acute) exacerbation; I10 Essential (primary) hypertension; E11.9 Type 2 diabetes mellitus without complications; F17.210 Nicotine dependence, cigarettes, uncomplicated; Z79.84 Long term (current) use of oral hypoglycemic drugs; Z79.51 Long term (current) use of inhaled steroids; Z79.899 Other long term (current) drug therapy
CPT/HCPCS: 36415; 71045; 71250; 80048; 80053; 81001; 82550; 82553; 82962; 83735; 83880; 84484; 85025; 93005; 93010; 94640; 94762; 99291; J1644; J1815; J2920; J3490; J7512; J7620

== ENCOUNTER → 2018-11-30 | Outpatient (CLI) | payer OTHER ==
--- NOTE | 2018-11-30 17:10 | WOMENS IMAGING REPORT ---
EXAM DESCRIPTION: BETTY HOWE 3D BILAT SCREEN COMPLETED DATE/TIME: 11/30/2018 9:10 am REASON FOR STUDY: ROUTINE BILATERAL SCREENING;Z12.31 Z12.31 ENCNTR SCREEN MAMMOGRAM FOR MALIGNANT N EOPLASM OF ANTONINO COMPARISON: None. TECHNIQUE: Standard craniocaudal and mediolateral oblique views of each breast recorded using digita l acquisition and breast tomosynthesis. LIMITATIONS: None. FINDINGS: No masses, calcifications or architectural distortion. No areas of suspicion. Read with the assistance of CAD. .[facility] - R2 Cenova Version 1.3 .[facility] - R2 Cenova Version 2.1 .[facility] - R2 Cenova Version 2.4 .[facility] [place] [place] - R2 Cenova Version 2.4 .[facility] - R2 Hr Consultant Version 9.2 IMPRESSION: NORMAL MAMMOGRAM. BIRADS 1. BREAST DENSITY: b. There are scattered areas of fibroglandular density. BIRAD: 1 NEGATIVE RECOMMENDATION: ROUTINE SCREENING COMMENT: The patient has been notified of the results by letter per SA requirements. Additional no tification policies are in place for contacting patient with suspicious or incomplete findings. Quality ID #[id number]: The [employer] recommends an annual screening mammogram for women aged 40 years or over. This facility utilizes a reminder system to ensure that all patients receive reminder letters, and/or direct phone calls for appointments. This includes reminders for routine scr eening mammograms, diagnostic mammograms, or other Breast Imaging Interventions when appropriate. Th is patient will be placed in the appropriate reminder system. The [employer] (ACR) has developed recommendations for screening MRI of the breast s in certain patient populations, to be used in conjunction with mammography. Breast MRI surveillanc e may be appropriate for women with more than 20% lifetime risk of developing breast cancer as deter mined by genetic testing, significant family history of the disease, or history of mantle radiation f or Hodgkins Disease. ACR Practice Guidelines 2008. DBT Technology DBT is a type of tomographic mammography. With conventional mammography, overlapping breast tissue ma y make lesions difficult to detect, even with good compression. DBT uses an x-ray tube that rotates a round the breast, taking images at different angles. These images are then combined to create thin sl ices of the breast that the radiologist can view as a 3D reconstruction. The [employer] unit can perform full-field digital mammograms (2D imaging); or DBT (3D imaging); or both, in a combination mode that quickly performs both the mammogram and the tomosynthesis scan while the breast is still compressed. PQRS 6045F: Fluoroscopic imaging is not utilized for breast tomosynthesis. TECHNICAL DOCUMENTATION: FINDING NUMBER: (1) ASSESSMENT: (1) JOB ID: [id number] 1917 [employer]- All Rights Reserved Reading location - IP/workstation name: [facility]-
== END ==
LOC: WI 08:33
PROVIDERS: ATTEND Physician Assistant
DX: Z12.31 Encounter for screening mammogram for malignant neoplasm of breast (principal)
CPT/HCPCS: 77063

== ENCOUNTER → 2018-11-30 | Outpatient (CLI) | payer OTHER ==
--- NOTE | 2018-11-30 09:21 | WOMENS IMAGING REPORT ---
EXAM DESCRIPTION: BONE DENSITY HIP/SPINE COMPLETED DATE/TIME: 11/30/2018 9:09 am REASON FOR STUDY: N95.9 N95.9 UNSPECIFIED MENOPAUSAL AND PERIMENOPAUSAL DISORDER COMPARISON: None. TECHNIQUE: Dual-Energy X-ray Absorptiometry (DEXA) of the AP Spine and Hip. LIMITATIONS: None. FINDINGS: LUMBAR SPINE: The bone mineral density (BMD) measured from L1-L4 in the AP projection correlates with a T-score of -1.1, which is osteopenia as defined by the World Health Organization. HIP: The bone mineral density (BMD) measured in the left hip correlates with a T-score of -1.4 point, whic h is osteopenia as defined by the World Health Organization. IMPRESSION: 1. LUMBAR SPINE: Osteopenia 2. HIP: Osteopenia COMMENT: The World Health Organization defines low BMD as follows: T-score: Normal: Greater than -1.0 Osteopenia: Between -1.0 and -2.5 Osteoporosis: Less than -2.5 without fractures Established osteoporosis: Less than -2.5 with fractures In general, you may wish to consider: Diagnosis Treatment Follow-up DEXA Normal BMD Prevention 2-3 years Osteopenia Prevention/Therapy 1-2 years Osteoporosis Therapy Yearly TECHNICAL DOCUMENTATION: JOB ID: [id number] [employer]- All Rights Reserved Reading location - IP/workstation name: [email or web address]
== END ==
LOC: WI 08:35
PROVIDERS: ATTEND Physician Assistant
DX: N95.9 Unspecified menopausal and perimenopausal disorder (principal); M85.88 Other specified disorders of bone density and structure, other site
CPT/HCPCS: 77080

== ENCOUNTER → 2019-03-17 | Outpatient (CLI) | payer OTHER ==
[2019-03-17 10:31] LABS: ABSOLUTE BASOPHILS # (AUTO) 0.1 10^3/uL (0.0-0.2); ABSOLUTE LYMPHOCYTES (AUTO) 2.3 10^3/uL (0.5-4.7); ABSOLUTE MONOCYTES (AUTO) 0.6 10^3/uL (0.1-1.4); ABSOLUTE NEUT (AUTO) 4.8 10^3/uL (1.7-8.2); BASOPHILS % (AUTO) 0.7 % (0-2); EOSINOPHILS % (AUTO) 0.6 % (0-6); HEMOGLOBIN 12.5 g/dL (12.0-15.5); LYMPHOCYTES % (AUTO) 29.6 % (13-45); MEAN CORPUSCULAR HEMOGLOBIN 31.2 pg (27.0-33.4); MEAN CORPUSCULAR HGB CONC 33.7 g/dL (32.0-36.0); MEAN CORPUSCULAR VOLUME 93 fl (80-97); MONOCYTES % (AUTO) 7.9 % (3-13); PLATELET COUNT 320 10^3/uL (150-450); SEGMENTED NEUTROPHILS % (AUTO) 61.2 % (42-78); TOTAL CELLS COUNTED % (AUTO) 100 %; WHITE BLOOD COUNT 7.9 10^3/uL (4.0-10.5)
[2019-03-17 10:47] LABS: ALANINE AMINOTRANSFERASE 39 U/L (9-52); ALBUMIN 4.2 g/dL (3.5-5.0); ALKALINE PHOSPHATASE 88 U/L (38-126); ANION GAP 10 (5-19); ASPARTATE AMINO TRANSFERASE 34 U/L (14-36); BILIRUBIN,DIRECT 0.3 mg/dL (0.0-0.4); BILIRUBIN,TOTAL 0.5 mg/dL (0.2-1.3); BLOOD UREA NITROGEN 17 mg/dL (7-20); CALCIUM 9.7 mg/dL (8.4-10.2); CARBON DIOXIDE 29 mmol/L (22-30); CHLORIDE 100 mmol/L (98-107); CHOLESTEROL 187.32 mg/dL (0-200); GLUCOSE 136 mg/dL (75-110); POTASSIUM 3.8 mmol/L (3.6-5.0); SODIUM 138.7 mmol/L (137-145); TOTAL PROTEIN 6.9 g/dL (6.3-8.2); TRIGLYCERIDES 228 mg/dL (<150)
[2019-03-17 11:01] LABS: DIRECT LDL 115 mg/dL (<100)
[2019-03-17 11:05] LABS: VLDL CHOLESTEROL 45.6 mg/dL (10-31)
[2019-03-18 11:39] LABS: CREATININE URINE 143.8 mg/dL (Not Estab.)
== END ==
LOC: LAB 10:04
PROVIDERS: ATTEND Physician Assistant
DX: I10 Essential (primary) hypertension (principal); E78.5 Hyperlipidemia, unspecified; Z13.228 Encounter for screening for other metabolic disorders
CPT/HCPCS: 36415; 80053; 80061; 82043; 82570; 83036; 84443; 85025

== ENCOUNTER 2020-08-13 11:46 | Inpatient (IN) | payer SELFPAY ==
--- NOTE | 2020-08-13 13:20 | ER Document Report ---
ED Medical Screen (RME) - General Chief Complaint: Weakness Stated Complaint: WEAKNESS/FREQUENT URINATION/CONSTIPATION/SOB Time Seen by Provider: 08/13/20 12:49 Primary Care Provider: VITOR CUNNINGHAM PA-C [Primary Care Provider] - Follow up as needed TRAVEL OUTSIDE OF THE [place] IN LAST 30 DAYS: No - HPI Notes: 08/13/20 13:34 65-year-old female with past medical history for COPD and diabetes to the emergency department with progressively worsening fatigue, weakness, shortness of breath over the past week. She states that she has had some difficulty over the summer. She states that since June she has had a 12 pound unintentional weight loss. Her who is with her in the department states she usually has ample amount of energy but now he is having some difficulty getting out of the bed. Patient feels that she is just exhausted. Her sugars have also been labile, getting as high as 300. She states that she is on Metformin and glipizide. She states that she feels exertional shortness of breath. She states at home sometimes her oxygen level is 89%. She is not on oxygen at home but they have leftover oxygen from her mother. She states that couple times this week she decided to use the oxygen because she felt so badly. Denies any fevers or chills. Denies any possible COVID-19 contacts. I performed a brief medical screening exam on the patient determined that the patient needs further evaluation and management by main side provider. I have placed initial orders to help expedite care. - Related Data Allergies/Adverse Reactions: No Known Allergies Allergy (Verified 08/13/20 12:49) Past Medical History - Past Medical History Cardiac Medical History: Reports: Hx Hypertension Pulmonary Medical History: Reports: Hx Asthma Endocrine Medical History: Reports: Hx Diabetes Mellitus Type 2 Renal/ Medical History: Denies: Hx Peritoneal Dialysis Past Surgical History: Reports: Hx Tubal Ligation Physical Exam - Vital signs Vitals: Temp Pulse Resp BP Pulse Ox 98.8 F 109 H 18 157/91 H 98 08/13/20 12:50 08/13/20 12:50 08/13/20 12:50 08/13/20 12:50 08/13/20 12:50 Course - Vital Signs Vital signs: Temp Pulse Resp BP Pulse Ox 98.8 F 109 H 18 157/91 H 98 08/13/20 12:50 08/13/20 12:50 08/13/20 12:50 08/13/20 12:50 08/13/20 12:50 Doctor's Discharge - Discharge Referrals: VITOR CUNNINGHAM PA-C [Primary Care Provider] - Follow up as needed
--- NOTE | 2020-08-13 14:06 | RADIOLOGY REPORT (SQ) ---
EXAM DESCRIPTION: CHEST 2 VIEWS IMAGES COMPLETED DATE/TIME: 08/13/2020 1:42 pm REASON FOR STUDY: weakness, SOB COMPARISON: None. TECHNIQUE: Frontal and lateral radiographic views of the chest acquired. NUMBER OF VIEWS: Two view. LIMITATIONS: None. FINDINGS: LUNGS AND PLEURA: No opacities, masses or pneumothorax. No pleural effusion. MEDIASTINUM AND HILAR STRUCTURES: No masses or contour abnormalities. HEART AND VASCULAR STRUCTURES: Heart normal size. No evidence for failure. BONES: No acute findings. HARDWARE: None in the chest. OTHER: No other significant finding. IMPRESSION: NO SIGNIFICANT RADIOGRAPHIC FINDING IN THE CHEST. TECHNICAL DOCUMENTATION: JOB ID: [id number] [employer]- All Rights Reserved Reading location - IP/workstation name: [email or web address]
[2020-08-13 14:18] LABS: ABSOLUTE LYMPHOCYTES (AUTO) 1.8 10^3/uL (0.5-4.7); ABSOLUTE MONOCYTES (AUTO) 0.7 10^3/uL (0.1-1.4); ABSOLUTE NEUT (AUTO) 6.9 10^3/uL (1.7-8.2); APPEARANCE,URINE CLEAR; BASOPHILS % (AUTO) 0.4 % (0-2); BILIRUBIN,URINE NEGATIVE (NEGATIVE); COLOR,URINE STRAW; EOSINOPHILS % (AUTO) 0.2 % (0-6); GLUCOSE, URINE >=500 mg/dL (NEGATIVE); HEMATOCRIT 43.9 % (36.0-47.0); HEMOGLOBIN 14.9 g/dL (12.0-15.5); KETONES,URINE 80 mg/dL (NEGATIVE); LYMPHOCYTES % (AUTO) 18.9 % (13-45); MEAN CORPUSCULAR HEMOGLOBIN 31.3 pg (27.0-33.4); MEAN CORPUSCULAR HGB CONC 33.9 g/dL (32.0-36.0); MEAN CORPUSCULAR VOLUME 93 fl (80-97); MONOCYTES % (AUTO) 7.4 % (3-13); PLATELET COUNT 298 10^3/uL (150-450); PROTEIN,URINE NEGATIVE (NEGATIVE); RED BLOOD COUNT 4.75 10^6/uL (3.72-5.28); RED CELL DISTRIBUTION WIDTH 13.9 % (11.5-14.0); SEGMENTED NEUTROPHILS % (AUTO) 73.1 % (42-78); TOTAL CELLS COUNTED % (AUTO) 100 %; URINE SPECIFIC GRAVITY 1.026; UROBILINOGEN,URINE NEGATIVE mg/dL (<2.0); WHITE BLOOD COUNT 9.4 10^3/uL (4.0-10.5)
[2020-08-13 14:21] LABS: PARTIAL THROMBOPLASTIN TIME 29.4 SEC (23.5-35.8); PROTHROMBIN TIME 12.4 SEC (11.4-15.4)
--- NOTE | 2020-08-13 14:22 | EKG REPORT ---
SEVERITY:- ABNORMAL ECG - SINUS RHYTHM LEFT ATRIAL ABNORMALITY BORDERLINE LEFT AXIS DEVIATION : Confirmed by: Bernabe Maldonado MD 13-Aug-2020 14:21:30
[2020-08-13 14:29] LABS: ALBUMIN 4.9 g/dL (3.5-5.0); ALKALINE PHOSPHATASE 178 U/L (38-126); ASPARTATE AMINO TRANSFERASE 21 U/L (14-36); BILIRUBIN,DIRECT 0.2 mg/dL (0.0-0.4); BILIRUBIN,TOTAL 0.7 mg/dL (0.2-1.3); BLOOD UREA NITROGEN 27 mg/dL (7-20); CALCIUM 10.5 mg/dL (8.4-10.2); POTASSIUM 5.7 mmol/L (3.6-5.0); TOTAL PROTEIN 7.5 g/dL (6.3-8.2)
[2020-08-13 14:33] LABS: CARBON DIOXIDE 15 mmol/L (22-30); CHLORIDE 89 mmol/L (98-107)
[2020-08-13 14:36] LABS: ANION GAP 24 (5-19)
[2020-08-13 14:37] LABS: GLUCOSE 623 mg/dL (75-110)
[2020-08-13 14:49] LABS: NT PRO BNP 66 pg/mL (<125)
[2020-08-13 14:50] LABS: TROPONIN I < 0.012 ng/mL
--- NOTE | 2020-08-13 14:55 | ER Document Report ---
ED General - General Chief Complaint: Weakness Stated Complaint: WEAKNESS/FREQUENT URINATION/CONSTIPATION/SOB Time Seen by Provider: 08/13/20 12:49 Primary Care Provider: VITOR CUNNINGHAM PA-C [Primary Care Provider] - Follow up as needed Notes: 65-year-old woman presents to the emergency department with a complaint of worsening COPD, diabetes mellitus and an unintentional weight loss of approximately 12 pounds since beginning of June. She states that she has had increasing difficulties with shortness of breath and tightness. States that she has had a history of seasonal change related exacerbations of her COPD. She is approximately 1year post cigarette use. She also has diabetes mellitus which she has tried to controlled with diet and medications. She takes Metformin at 1000 mg twice a day and recently had glipizide added to her regimen. He said her sugar is always in the 300s or higher. She uses albuterol nebulizer treatments, albuterol inhaler and Advair. She was taken off of prednisone in April and has not taken prednisone since that time. She also notes decreased energy and difficulty getting out of the bed early in the morning her energy is 0. She denies any symptoms of coronavirus infections and has not had direct contact with any known positive individuals. TRAVEL OUTSIDE OF THE [place] IN LAST 30 DAYS: No - Related Data Allergies/Adverse Reactions: No Known Allergies Allergy (Verified 08/13/20 12:49) Past Medical History - Social History Smoking Status: Current Some Day Smoker Family History: DM, Hypertension Patient has homicidal ideation: No - Past Medical History Cardiac Medical History: Reports: Hx Hypertension Pulmonary Medical History: Reports: Hx Asthma Endocrine Medical History: Reports: Hx Diabetes Mellitus Type 2 Renal/ Medical History: Denies: Hx Peritoneal Dialysis Past Surgical History: Reports: Hx Tubal Ligation Review of Systems - Review of Systems Notes: Constitutional: + Weight loss, + generalized weakness HENT: Negative for sore throat. Eyes: Negative for visual changes. Cardiovascular: Negative for chest pain. Respiratory: Negative for shortness of breath. Gastrointestinal: Negative for abdominal pain, vomiting or diarrhea. Genitourinary: Negative for dysuria. Musculoskeletal: Negative for back pain. Skin: Negative for rash. Neurological: Negative for headaches, weakness or numbness. 10 point ROS negative except as marked above and in HPI. Physical Exam - Vital signs Vitals: Temp Pulse Resp BP Pulse Ox 98.8 F 109 H 18 157/91 H 98 08/13/20 12:50 08/13/20 12:50 08/13/20 12:50 08/13/20 12:50 08/13/20 12:50 - Notes Notes: PHYSICAL EXAMINATION: Physical Exam: General: Thin 65-year-old woman in no acute distress HEENT: NC/AT, pupils equal round and reactive to light, MM moist,nares clear, oropharynx clear, airway patent Neck: supple, no adenopathy, no masses. Good range of motion Lungs: clear, no wheezing, no rales no rhonchi CVS: Tachycardia rate and rhythm no murmur gallop or rub Abdomen: Soft, active, nontender, no masses, no hepatosplenomegaly Ext: No edema, clubbing or cyanosis. Neuro: Alert and responsive, moving all 4 extremities on command, cranial nerves intact, no focal findings Skin: Intact no open lesions, no rash PSYCH: Normal mood, normal affect. Course - Re-evaluation Re-evalutation: 08/13/20 16:04 I reviewed the patient's labs and discussed with her she has metabolic acidosis and elevated glucose of 623. That she likely will need to come into the hospital for further management and treatment. The patient is agreeable with that plan. Also spoken with the security intern, Dr. Fernández, he has, and reviewed the patient, states that the patient does not meet ICU criteria. The hospitalist was contacted, Dr. Slater, he will see the patient in the emergency department for admission to the [facility]. - Vital Signs Vital signs: Temp Pulse Resp BP Pulse Ox 98.8 F 109 H 18 157/91 H 98 08/13/20 12:50 08/13/20 12:50 08/13/20 12:50 08/13/20 12:50 08/13/20 12:50 - Laboratory Result Diagrams: 08/13/20 13:15 08/13/20 13:15 Laboratory results interpreted by me: 08/13/20 08/13/20 13:15 13:15 Sodium 128.1 L Potassium 5.7 H Chloride 89 L Carbon Dioxide 15 L Anion Gap 24 H BUN 27 H Glucose 623 H* Calcium 10.5 H Alkaline Phosphatase 178 H Urine Glucose (UA) >=500 H Urine Ketones 80 H 08/13/20 15:06 I have reviewed laboratory data and used this information for the treatment decisions regarding the patient. - Diagnostic Test Radiology reviewed: Image reviewed, Reports reviewed Radiology results interpreted by me: 08/13/20 15:08 Chest X-Ray 08/13/20 12:59 IMPRESSION: NO SIGNIFICANT RADIOGRAPHIC FINDING IN THE CHEST. - EKG Interpretation by Me Rate: Normal - EKG interpreted by Dr. Del Valle: Normal sinus rhythm, rate 98, VA interval 168 ms QT interval 340 ms, borderline left axis deviation, no acute ST or T wave abnormalities, no ischemic findings, compared to EKG dated 02/14/2018, there are no significant interval changes. Interpretation normal EKG Critical Care Note - Critical Care Note Total time excluding time spent on procedures (mins): 60 - Critical care macro Discharge - Discharge Clinical Impression: COPD exacerbation, Weight loss, unintentional Diabetic ketoacidosis Qualifiers: Diabetes mellitus type: type 2 Diabetes mellitus complication detail: without coma Qualified Code(s): E11.10 - Type 2 diabetes mellitus with ketoacidosis without coma Condition: Good Disposition: ADMITTED INPATIENT Admitting Provider: Bryon (Hospitalist) Unit Admitted: IMCU Referrals: VITOR CUNNINGHAM PA-C [Primary Care Provider] - Follow up as needed
[2020-08-13] MEDS ORDERED: NORMAL SALINE 1000 ML 1,000 ML IV ONE (14:58)
[2020-08-13] MEDS ORDERED: INSULIN REG, HUMAN 100 UNIT/ML 3 ML VIAL (PYX) IV ONE (14:59)
--- NOTE | 2020-08-13 15:32 | PDOC CRITICAL CARE PROG REPORT ---
General Date:: 08/13/20 Hospital Day:: 1 Resuscitation Status: Full Code Events in the past 12 to 24 Hours:: High blood sugar, mild acidosis and dehydration. Review of systems relevant to events:: Endocrine Reason for ICU Addmission:: Evaluation - Medications: Medications reviewed and adjusted accordingly: Yes Vasopressors:: None Sedation:: None Physical Exam Vital Signs: Temp Pulse Resp BP Pulse Ox 98.8 F 109 H 18 157/91 H 98 08/13/20 12:50 08/13/20 12:50 08/13/20 12:50 08/13/20 12:50 08/13/20 12:50 Intake & Output 08/12/20 08/13/20 08/14/20 07:59 06:59 06:59 Weight 48.988 kg Weight/Height Weight 48.988 kg Height 5 ft 3 in General appearance: PRESENT: no acute distress, thin Head exam: PRESENT: atraumatic, normocephalic Eye exam: PRESENT: conjunctiva pink, EOMI, PERRLA. ABSENT: scleral icterus Ear exam: PRESENT: normal external ear exam Mouth exam: PRESENT: dry mucosa Respiratory exam: PRESENT: clear to auscultation andres, decreased breath sounds. ABSENT: rales, rhonchi, wheezes Cardiovascular exam: PRESENT: RRR, tachycardia. ABSENT: diastolic murmur, rubs, systolic murmur GI/Abdominal exam: PRESENT: normal bowel sounds, soft. ABSENT: distended, guarding, mass, organolmegaly, rebound, tenderness Rectal exam: PRESENT: deferred Extremities exam: PRESENT: full ROM. ABSENT: calf tenderness, clubbing, pedal edema Musculoskeletal exam: PRESENT: normal inspection Neurological exam: PRESENT: alert, awake, oriented to person, oriented to place, oriented to time, oriented to situation, CN II-XII grossly intact. ABSENT: motor sensory deficit Psychiatric exam: PRESENT: appropriate affect, normal mood. ABSENT: homicidal ideation, suicidal ideation Skin exam: PRESENT: dry, intact, warm. ABSENT: cyanosis, rash Laboratory/Radiographs Laboratory Results: 08/13/20 13:15 08/13/20 13:15 08/13/20 08/13/20 08/13/20 13:15 13:15 13:15 WBC 9.4 RBC 4.75 Hgb 14.9 Hct 43.9 MCV 93 MCH 31.3 MCHC 33.9 RDW 13.9 Plt Count 298 Seg Neutrophils % 73.1 Sodium 128.1 L Potassium 5.7 H Chloride 89 L Carbon Dioxide 15 L Anion Gap 24 H BUN 27 H Creatinine 0.77 Est GFR ( Amer) > 60 Glucose 623 H* Calcium 10.5 H Magnesium 2.1 Total Bilirubin 0.7 AST 21 Alkaline Phosphatase 178 H Total Protein 7.5 Albumin 4.9 Urine Color STRAW Urine Appearance CLEAR Urine pH 5.0 Ur Specific [place] 1.026 Urine Protein NEGATIVE Urine Glucose (UA) >=500 H Urine Ketones 80 H Urine Blood NEGATIVE Urine RBC (Auto) 2 08/13/20 13:15 Troponin I < 0.012 NT-Pro-B Natriuret Pep 66 Impressions: Chest X-Ray 08/13/20 12:59 IMPRESSION: NO SIGNIFICANT RADIOGRAPHIC FINDING IN THE CHEST. All labs, radiographs, diagnostic studies and EKGs were personally reviewed: Yes In addition, reports of radiographic and diagnostic studies were read: Yes Assessment and Plan - Diagnosis (1) Diabetes Qualifiers: Diabetes mellitus type: type 2 Diabetes mellitus senior living insulin use: without senior living use Diabetes mellitus complication status: with hyperglycemia Qualified Code(s): E11.65 - Type 2 diabetes mellitus with hyperglycemia Is this a current diagnosis for this admission?: Yes Plan: She has DM in her family. Several members, mother, sister, grandmother. She has tried out pt management but is here with a BG 623 and mild acidosis with bicarb 15. This is not DKA in the traditional sense, never been on insulin but has had bolus dosing in the past for high BG. She is dehydrated with much U/O. She needs fluid both PO and IV and I would suggest bolus insulin. If a drip is used this needs to be done carefully as I do not believe it will be long before her BG drops quite a bit. (2) Weight loss, unintentional Is this a current diagnosis for this admission?: Yes Plan: Much of this weight loss is probable fluid loss, to some degree her DM. (3) COPD exacerbation Is this a current diagnosis for this admission?: Yes Plan: This also is mild and I would start with nebulizers and hold on steroids for now. Plan Summary: She certainly does not need an ICU level of care at this point. Critical Time Critical Time (minutes): 35 Level of Care: MEDICAL Anticipated discharge: Home Anticipated DC Timeframe: Other -: 1. The care of a critical patient is a dynamic process. This note is a customer relations representative synopsis but static in nature. The timeframe for treatments given in order is not necessarily the actual time these treatments may have been done. 2. This patient requires critical care secondary to ongoing requirements for therapy not offered or safe outside the critical care environment. Transfer to a lower level of care will result in altered life or limb morbidity and mortality. 3. Multidisciplinary rounds completed. 4. ABCDE bundle addressed.
[2020-08-13 16:13] LABS: VENOUS BLOOD BASE EXCESS -6.5 mmol/L; VENOUS BLOOD HCO3 20.8 mmol/L (20-32); VENOUS BLOOD PH 7.26 (7.30-7.42)
[2020-08-13] MEDS ORDERED: GLUCAGON,HUMAN RECOMB 1 MG INJ IM PRN (16:53)
[2020-08-13] MEDS ORDERED: DEXTROSE 50%-WATER 25 GM/50 ML DISP.SYRIN IV PRN ×2 (16:53)
[2020-08-13] MEDS ORDERED: INSULIN NPH (ISOPHANE), HUMAN 100 UNIT/ML 3 ML SUBCUT ONE (16:53)
[2020-08-13] MEDS ORDERED: DEXTROSE 40% GEL 15 GM TUBE PO PRN ×2 (16:53)
[2020-08-13] MEDS ORDERED: NORMAL SALINE 1000 ML 1,000 ML IV PRN (16:53)
[2020-08-13] MEDS ORDERED: ONDANSETRON 4 MG TAB.RAPDIS PO PRN (16:56)
[2020-08-13] MEDS ORDERED: LEVALBUTEROL HCL NEB 1.25 MG/3 ML AMPUL NEB PRN (16:56)
[2020-08-13] MEDS ORDERED: ACETAMINOPHEN 325 MG TABLET PO PRN (16:56)
[2020-08-13] MEDS ORDERED: MAGNESIUM HYDROXIDE SUSP 30 ML UDCUP PO PRN (16:56)
[2020-08-13] MEDS ORDERED: MAG HYDROX/AL HYDROX/SIMETH SUSP 30 ML UDCUP PO PRN (16:56)
[2020-08-13] MEDS ORDERED: NICOTINE 14 MG/24 HR PATCH.TD24 TD PRN (17:05)
[2020-08-13] MEDS ORDERED: BISACODYL 5 MG TABEC PO PRN (17:11)
--- NOTE | 2020-08-13 17:34 | PDOC H&P ---
History of Present Illness Admission Date/PCP: 08/13/20 16:31 VITOR CUNNINGHAM PA-C Patient complains of: Weakness, polyuria and weight loss History of Present Illness: JOB VARGAS is a 65 year old female with a history of diabetes on Metformin and glipizide. She also has hypertension, hyperlipidemia, COPD and allergies. She states that she noticed weight loss earlier in the year. In the spring she was approximately 130 pounds and then by March/April she dropped to 115. Her weight improved back to 130 but then by this week she was down to 108 pounds. S he usually is very active. She began to notice her clothing was becoming somewhat loose fitting and she did not have the stamina that she is to. She began to lose her appetite as well. She presented to the hospital and was found to have a glucose greater than 600. Her pH was decreased and her blood work revealed increase potassium and an anion gap. Urine was positive for ketones and glucose. No evidence of infection. She was noted to have significant wheezing bilaterally. She remarked that she has noticed some increasing shortness of breath lately. Imaging did show significant flattening of the diaphragms and hyperinflation but no evidence of infection/infiltrate. Past Medical History Cardiac Medical History: Reports: Hyperlipidema, Hypertension Pulmonary Medical History: Reports: Asthma, Chronic Obstructive Pulmonary Disease (COPD) EENT Medical History: Reports: Other - Allergies Neurological Medical History: Denies: Ischemic CVA, Seizures Endocrine Medical History: Reports: Diabetes Mellitus Type 2 Renal/ Medical History: Denies: Chronic Kidney Disease Malignancy Medical History: Reports: None GI Medical History: Reports: Gastroesophageal Reflux Disease Psychiatric Medical History: Reports: Tobacco Dependency Denies: Alcohol Dependency, Depression, General Anxiety Disorder, Substance Abuse Traumatic Medical History: Reports: None Hematology: Reports: None Infectious Medical History: Reports: None Past Surgical History Past Surgical History: Reports: Tubal Ligation Social History Information Source: Patient Occupation: Works from the home Lives with: Spouse/Significant other Smoking Status: Former Smoker Electronic Cigarette use?: No Frequency of Alcohol Use: None Hx Recreational Drug Use: No Drugs: None Hx Prescription Drug Abuse: No - Advance Directive Resuscitation Status: Do Not Resuscitate Surrogate healthcare decision maker:: The patient reports that she does have a living well but states that she would not want intervention. Alternatively her would be the decision maker. Family History Family History: CAD, DM, Hypertension, Malignancy Parental Family History Reviewed: Yes Children Family History Reviewed: Yes Sibling(s) Family History Reviewed.: Yes Medication/Allergy Home Medications: Albuterol Sulfate [Proair HFA] 2 puff IH Q4HP PRN 02/13/18 Aspirin [Aspirin EC] 81 mg PO DAILY 02/13/18 Cetirizine HCl 10 mg PO DAILY 02/13/18 Enalapril Maleate [Vasotec] 5 mg PO DAILY 02/13/18 Glipizide [Glipizide ER] 5 mg PO DAILY 02/13/18 Metformin HCl [Metformin ER Gastric] 1,000 mg PO BID 02/13/18 Montelukast Sodium 10 mg PO DAILY 02/13/18 Pravastatin Sodium 40 mg PO QPM 02/13/18 Amlodipine Besylate [Norvasc 5 mg Tablet] 5 mg PO DAILY@1200 #30 tablet 02/16/18 Atenolol 50 mg PO QAM #0 02/16/18 Benzonatate [Tessalon Perles 100 mg Capsule] 100 mg PO Q8HP PRN #30 capsule 02/16/18 Fluticasone/Salmeterol [Advair 250-50 Diskus 14 Dose/Diskus] 1 inh IH Q12 #60 inhaler 02/16/18 Guaifenesin [Mucinex Sr 600 mg Tablet.sa] 600 mg PO BID #30 tablet.sa 02/16/18 Nicotine [Nicoderm 14 mg/24 Hr Transdermal Patch] 1 each TD DAILYP PRN #30 patch.td24 02/16/18 Prednisone [Deltasone 20 mg Tablet] 20 mg PO DAILY #5 tablet 02/16/18 Allergies/Adverse Reactions: No Known Allergies Allergy (Verified 08/13/20 12:49) Review of Systems All systems: reviewed and no additional remarkable complaints except as stated Constitutional: PRESENT: anorexia, fatigue, weakness, weight loss Respiratory: PRESENT: dyspnea Gastrointestinal: PRESENT: constipation Endocrine: PRESENT: polyuria Allergic/Immunologic: PRESENT: seasonal rhinorrhea Physical Exam Vital Signs: Temp Pulse Resp BP Pulse Ox 98.8 F 109 H 18 157/91 H 98 08/13/20 12:50 08/13/20 12:50 08/13/20 12:50 08/13/20 12:50 08/13/20 12:50 Intake & Output 08/12/20 08/13/20 08/14/20 07:59 06:59 06:59 Weight 48.988 kg General appearance: PRESENT: cooperative, mild distress, thin, well-developed Head exam: PRESENT: atraumatic, normocephalic Eye exam: PRESENT: conjunctiva pink, EOMI, PERRLA. ABSENT: scleral icterus Ear exam: PRESENT: normal external ear exam. ABSENT: bleeding, drainage Mouth exam: PRESENT: dry mucosa, tongue midline Teeth exam: ABSENT: poor dentation Neck exam: PRESENT: full ROM. ABSENT: carotid bruit, JVD, lymphadenopathy, tenderness, tracheostomy Respiratory exam: PRESENT: prolonged expiratory phas, symmetrical, wheezes - Bilateral diffuse wheezing. ABSENT: clear to auscultation andres, rales, rhonchi, tachypnea Cardiovascular exam: PRESENT: RRR - Borderline tachycardia, +S1, +S2. ABSENT: bradycardia, diastolic murmur, irregular rhythm, systolic murmur Pulses: PRESENT: normal radial pulses, normal dorsalis pedis pul GI/Abdominal exam: PRESENT: hypoactive bowel sounds, soft. ABSENT: distended, guarding, organolmegaly, tenderness Rectal exam: PRESENT: deferred Gentrourinary exam: ABSENT: indwelling catheter Extremities exam: PRESENT: full ROM. ABSENT: calf tenderness, joint swelling, pedal edema Musculoskeletal exam: PRESENT: ambulatory, normal inspection. ABSENT: deformity, dislocation Neurological exam: PRESENT: alert, awake, oriented to person, oriented to place, oriented to time, oriented to situation, CN II-XII grossly intact. ABSENT: altered, motor sensory deficit Psychiatric exam: PRESENT: appropriate affect. ABSENT: agitated, anxious Focused psych exam: ABSENT: delusional, paranoid, restlessness Skin exam: PRESENT: dry, normal color, warm. ABSENT: rash Results Laboratory Results: 08/13/20 13:15 08/13/20 13:15 08/13/20 08/13/20 08/13/20 13:15 13:15 13:15 WBC 9.4 RBC 4.75 Hgb 14.9 Hct 43.9 MCV 93 MCH 31.3 MCHC 33.9 RDW 13.9 Plt Count 298 Seg Neutrophils % 73.1 VBG pH VBG pCO2 VBG HCO3 VBG Base Excess Sodium 128.1 L Potassium 5.7 H Chloride 89 L Carbon Dioxide 15 L Anion Gap 24 H BUN 27 H Creatinine 0.77 Est GFR ( Amer) > 60 Glucose 623 H* Calcium 10.5 H Magnesium 2.1 Total Bilirubin 0.7 AST 21 Alkaline Phosphatase 178 H Total Protein 7.5 Albumin 4.9 Urine Color STRAW Urine Appearance CLEAR Urine pH 5.0 Ur Specific [place] 1.026 Urine Protein NEGATIVE Urine Glucose (UA) >=500 H Urine Ketones 80 H Urine Blood NEGATIVE Urine RBC (Auto) 2 08/13/20 16:00 WBC RBC Hgb Hct MCV MCH MCHC RDW Plt Count Seg Neutrophils % VBG pH 7.26 L VBG pCO2 48.0 VBG HCO3 20.8 VBG Base Excess -6.5 Sodium Potassium Chloride Carbon Dioxide Anion Gap BUN Creatinine Est GFR ( Amer) Glucose Calcium Magnesium Total Bilirubin AST Alkaline Phosphatase Total Protein Albumin Urine Color Urine Appearance Urine pH Ur Specific [place] Urine Protein Urine Glucose (UA) Urine Ketones Urine Blood Urine RBC (Auto) 08/13/20 13:15 Troponin I < 0.012 NT-Pro-B Natriuret Pep 66 Impressions: Chest X-Ray 08/13/20 12:59 IMPRESSION: NO SIGNIFICANT RADIOGRAPHIC FINDING IN THE CHEST. Assessment and Plan - Diagnosis (1) Diabetic ketoacidosis Qualifiers: Diabetes mellitus type: type 2 Diabetes mellitus complication detail: without coma Qualified Code(s): E11.10 - Type 2 diabetes mellitus with ketoacidosis without coma Is this a current diagnosis for this admission?: Yes (2) Hyperglycemia due to type 2 diabetes mellitus Qualifiers: Diabetes mellitus terminal computer operator insulin use: without terminal computer operator use Qualified Code(s): E11.65 - Type 2 diabetes mellitus with hyperglycemia Is this a current diagnosis for this admission?: Yes (3) Hyperlipidemia Qualifiers: Hyperlipidemia type: unspecified Qualified Code(s): E78.5 - Hyperlipidemia, unspecified Is this a current diagnosis for this admission?: Yes (4) Weight loss, unintentional Is this a current diagnosis for this admission?: Yes (5) HTN (hypertension) Qualifiers: Hypertension type: essential hypertension Qualified Code(s): I10 - Essential (primary) hypertension Is this a current diagnosis for this admission?: Yes (6) Acute exacerbation of COPD with asthma Is this a current diagnosis for this admission?: Yes (7) Hyperkalemia Is this a current diagnosis for this admission?: Yes (8) Weight loss Is this a current diagnosis for this admission?: Yes - Plan Summary Summary: Diabetic ketoacidosis Accu-Cheks and serial blood work to monitor electrolytes and anion gap. Continuous IV fluids. Repeat urinalysis for ketones monitoring. Insulin therapy with transition back to oral medications most likely. Instead of her glipizide we may add Januvia to the Metformin. We will need to monitor sliding scale requirements and Accu-Cheks towards the end of her hospitalization to determine the best outpatient treatment. Hyperglycemia due to diabetes mellitus type 2 Plan as above. Move towards cardiac/diabetic diet. Hyperkalemia Monitor electrolytes with serial laboratory studies. With aggressive IV fluids the potassium will decrease. Hyponatremia Due to hyperglycemia. When calculated the serum sodium corrects to normal. Exacerbation of COPD with asthma The patient did not appreciate that she was quite so wheezy. We will use scheduled nebulizers with as needed treatments initially. This will include duo nebs and budesonide. She does not require supplemental oxygen at this time but will monitor closely. Will transition back to Advair or other outpatient dual therapy inhaler with rescue albuterol towards the end of the hospitalization. Hypertension Continue enalapril and atenolol. Monitor serial vital signs. Hyperlipidemia Continue statin therapy. We will substitute atorvastatin for pravastatin during her hospitalization. - Time Time Spent with patient: 35 or more minutes Medications reviewed and adjusted accordingly: Yes Anticipated Discharge Disposition: Home, Self Care Anticipated Discharge Timeframe: Likely 3 to 4 days - Inpatient Certification Based on my medical assessment, after consideration of the patient's comorbidities, presenting symptoms, or acuity I expect that the services needed warrant INPATIENT care.: Yes I certify that my determination is in accordance with my understanding of Medicare's requirements for reasonable and necessary INPATIENT services [42 CFR 412.3e].: Yes Medical Necessity: Need Close Monitoring Due to Risk of Patient Decompensation, Need For IV Fluids, Need For Continuous Telemetry Monitoring, Need for Nebulizer Therapy and Monitoring of Response Post Hospital Care: D/C or Transfer Summary
[2020-08-13] MEDS: GUAIFENESIN 600 MG TABLET.SA PO SCH (19:28)
[2020-08-13] MEDS: SENNOSIDES/DOCUSATE 8.6-50 MG 1 EACH TABLET PO SCH (19:28)
[2020-08-13] MEDS: BUDESONIDE NEB 0.5 MG/2 ML AMPUL NEB SCH (19:46)
[2020-08-13] MEDS: IPRATROPIUM/ALBUTEROL 0.5-2.5 MG/3 ML AMPUL NEB SCH (19:46)
[2020-08-13] MEDS ORDERED: INSULIN GLARGINE,HUM.REC.ANLOG 1,000 UNIT/10 ML VIAL (PYX) SUBCUT ONE (21:12)
[2020-08-13] MEDS: ATORVASTATIN CALCIUM 40 MG TABLET PO SCH (21:37)
[2020-08-13] MEDS: INSULIN LISPRO 100 UNIT/ML 3 ML VIAL SUBCUT SCH (21:37)
[2020-08-13] MEDS ORDERED: INSULIN GLARGINE,HUM.REC.ANLOG 1,000 UNIT/10 ML VIAL SUBCUT SCH (22:00)
[2020-08-13 22:09] LABS: ANION GAP 16 (5-19); BLOOD UREA NITROGEN 24 mg/dL (7-20); CALCIUM 9.3 mg/dL (8.4-10.2); CARBON DIOXIDE 18 mmol/L (22-30); CHLORIDE 100 mmol/L (98-107); GLUCOSE 357 mg/dL (75-110)
[2020-08-13 22:27] LABS: POTASSIUM 4.5 mmol/L (3.6-5.0)
[2020-08-14] MEDS: IPRATROPIUM/ALBUTEROL 0.5-2.5 MG/3 ML AMPUL NEB SCH ×4 (02:04→19:59)
[2020-08-14 04:49] LABS: APPEARANCE,URINE CLEAR; BILIRUBIN,URINE NEGATIVE (NEGATIVE); COLOR,URINE STRAW; GLUCOSE, URINE >=500 mg/dL (NEGATIVE); KETONES,URINE 80 mg/dL (NEGATIVE); LEUKOCYTE ESTERASE,URINE NEGATIVE (NEGATIVE); NITRITE,URINE NEGATIVE (NEGATIVE); PROTEIN,URINE NEGATIVE (NEGATIVE); URINE SPECIFIC GRAVITY 1.027; UROBILINOGEN,URINE NEGATIVE mg/dL (<2.0)
[2020-08-14] MEDS: PANTOPRAZOLE SODIUM 20 MG TABLET.DR PO SCH (05:24)
[2020-08-14 05:34] LABS: ABSOLUTE EOSINOPHILS # (AUTO) 0.1 10^3/uL (0.0-0.6); ABSOLUTE LYMPHOCYTES (AUTO) 1.8 10^3/uL (0.5-4.7); ABSOLUTE MONOCYTES (AUTO) 0.6 10^3/uL (0.1-1.4); ABSOLUTE NEUT (AUTO) 3.2 10^3/uL (1.7-8.2); BASOPHILS % (AUTO) 0.4 % (0-2); EOSINOPHILS % (AUTO) 1.1 % (0-6); HEMATOCRIT 34.5 % (36.0-47.0); LYMPHOCYTES % (AUTO) 31.7 % (13-45); MEAN CORPUSCULAR HEMOGLOBIN 30.3 pg (27.0-33.4); MEAN CORPUSCULAR HGB CONC 33.4 g/dL (32.0-36.0); MEAN CORPUSCULAR VOLUME 91 fl (80-97); MONOCYTES % (AUTO) 10.9 % (3-13); PLATELET COUNT 223 10^3/uL (150-450); RED BLOOD COUNT 3.81 10^6/uL (3.72-5.28); SEGMENTED NEUTROPHILS % (AUTO) 55.9 % (42-78); TOTAL CELLS COUNTED % (AUTO) 100 %; WHITE BLOOD COUNT 5.8 10^3/uL (4.0-10.5)
[2020-08-14 05:36] LABS: HEMOGLOBIN 11.5 g/dL (12.0-15.5)
[2020-08-14 05:50] LABS: CHOLESTEROL 156.95 mg/dL (0-200); TRIGLYCERIDES 247 mg/dL (<150)
[2020-08-14 06:01] LABS: DIRECT LDL 92 mg/dL (<100)
[2020-08-14 06:06] LABS: VLDL CHOLESTEROL 49.4 mg/dL (10-31)
[2020-08-14] MEDS ORDERED: INFLUENZA QUAD (6MOS+) 2020-21 VAC 0.5 ML SYR IM ONE (08:00)
[2020-08-14] MEDS: INSULIN LISPRO 100 UNIT/ML 3 ML VIAL SUBCUT SCH ×2 (08:25→21:37)
[2020-08-14] MEDS: ATENOLOL 50 MG TABLET PO SCH (08:25)
[2020-08-14] MEDS: BUDESONIDE NEB 0.5 MG/2 ML AMPUL NEB SCH ×2 (08:35→19:59)
[2020-08-14] MEDS ORDERED: NORMAL SALINE 1000 ML 1,000 ML IV PRN (08:45)
[2020-08-14] MEDS ORDERED: NORMAL SALINE 100 ML with INSULIN REGULAR, HUMAN 100 UNIT IV PRN ×2 (09:17)
[2020-08-14] MEDS: ENOXAPARIN SODIUM INJ 40 MG/0.4 ML DISP.SYRIN SUBCUT SCH (09:20)
[2020-08-14] MEDS: ASPIRIN 81 MG TABLET, ENT COATED PO SCH (09:20)
[2020-08-14] MEDS: GUAIFENESIN 600 MG TABLET.SA PO SCH ×2 (09:20→21:38)
[2020-08-14] MEDS: POLYETHYLENE GLYCOL 3350 POWDER 17 GM/1 PACKET PO SCH (09:20)
[2020-08-14] MEDS: MONTELUKAST SODIUM 10 MG TABLET PO SCH (09:21)
[2020-08-14] MEDS: CETIRIZINE 10 MG TABLET PO SCH (09:21)
[2020-08-14] MEDS: SENNOSIDES/DOCUSATE 8.6-50 MG 1 EACH TABLET PO SCH ×2 (09:21→17:36)
--- NOTE | 2020-08-14 09:26 | PDOC PROGRESS REPORT ---
Subjective Progress Note for:: 08/14/20 Subjective:: Patient is actually feeling much better. Unfortunately she is still ketone positive with low bicarbonate. She is just finishing a nebulizer treatment. Reason For Visit: DKA,HYPERTENSION,HYPERLIPIDEMIA,DIABETES MELLITUS Physical Exam Vital Signs: Temp Pulse Resp BP Pulse Ox 97.6 F 92 16 139/65 H 96 08/14/20 08:04 08/14/20 08:37 08/14/20 08:37 08/14/20 08:04 08/14/20 08:37 Intake & Output 08/13/20 08/14/20 08/15/20 06:59 06:59 06:59 Intake Total 1540 Output Total 1100 Balance 440 Weight 53.3 kg General appearance: PRESENT: no acute distress, cooperative, thin Head exam: PRESENT: atraumatic, normocephalic Respiratory exam: PRESENT: clear to auscultation andres, symmetrical, unlabored. ABSENT: rales, rhonchi, tachypnea, wheezes Cardiovascular exam: PRESENT: RRR, +S1, +S2. ABSENT: bradycardia, diastolic murmur, irregular rhythm, systolic murmur, tachycardia GI/Abdominal exam: PRESENT: normal bowel sounds, soft. ABSENT: distended, guarding, tenderness Rectal exam: PRESENT: deferred Gentrourinary exam: ABSENT: indwelling catheter Extremities exam: ABSENT: pedal edema Musculoskeletal exam: PRESENT: ambulatory. ABSENT: deformity, dislocation Neurological exam: PRESENT: alert, awake, oriented to person, oriented to place, oriented to time, oriented to situation, CN II-XII grossly intact. ABSENT: altered, motor sensory deficit Psychiatric exam: PRESENT: appropriate affect. ABSENT: agitated, anxious Focused psych exam: ABSENT: delusional, paranoid, restlessness Results Laboratory Results: 08/14/20 04:48 08/13/20 21:45 08/13/20 08/13/20 08/13/20 13:15 13:15 13:15 WBC 9.4 RBC 4.75 Hgb 14.9 Hct 43.9 MCV 93 MCH 31.3 MCHC 33.9 RDW 13.9 Plt Count 298 Seg Neutrophils % 73.1 VBG pH VBG pCO2 VBG HCO3 VBG Base Excess Sodium 128.1 L Potassium 5.7 H Chloride 89 L Carbon Dioxide 15 L Anion Gap 24 H BUN 27 H Creatinine 0.77 Est GFR ( Amer) > 60 Glucose 623 H* Calcium 10.5 H Magnesium 2.1 Total Bilirubin 0.7 AST 21 Alkaline Phosphatase 178 H Total Protein 7.5 Albumin 4.9 Triglycerides Cholesterol LDL Cholesterol Direct VLDL Cholesterol HDL Cholesterol Urine Color STRAW Urine Appearance CLEAR Urine pH 5.0 Ur Specific [place] 1.026 Urine Protein NEGATIVE Urine Glucose (UA) >=500 H Urine Ketones 80 H Urine Blood NEGATIVE Urine Nitrite Ur Leukocyte Esterase Urine WBC (Auto) Urine RBC (Auto) 2 08/13/20 08/13/20 08/14/20 16:00 21:45 04:15 WBC RBC Hgb Hct MCV MCH MCHC RDW Plt Count Seg Neutrophils % VBG pH 7.26 L VBG pCO2 48.0 VBG HCO3 20.8 VBG Base Excess -6.5 Sodium 133.8 L Potassium 4.5 D Chloride 100 Carbon Dioxide 18 L Anion Gap 16 BUN 24 H Creatinine 1.14 Est GFR ( Amer) 58 L Glucose 357 H Calcium 9.3 Magnesium Total Bilirubin AST Alkaline Phosphatase Total Protein Albumin Triglycerides Cholesterol LDL Cholesterol Direct VLDL Cholesterol HDL Cholesterol Urine Color STRAW Urine Appearance CLEAR Urine pH 5.0 Ur Specific [place] 1.027 Urine Protein NEGATIVE Urine Glucose (UA) >=500 H Urine Ketones 80 H Urine Blood NEGATIVE Urine Nitrite NEGATIVE Ur Leukocyte Esterase NEGATIVE Urine WBC (Auto) 5 Urine RBC (Auto) 1 08/14/20 08/14/20 04:48 04:48 WBC 5.8 RBC 3.81 Hgb 11.5 L D Hct 34.5 L MCV 91 MCH 30.3 MCHC 33.4 RDW 14.0 Plt Count 223 Seg Neutrophils % 55.9 VBG pH VBG pCO2 VBG HCO3 VBG Base Excess Sodium Potassium Chloride Carbon Dioxide Anion Gap BUN Creatinine Est GFR ( Amer) Glucose Calcium Magnesium 1.8 Total Bilirubin AST Alkaline Phosphatase Total Protein Albumin Triglycerides 247 H Cholesterol 156.95 LDL Cholesterol Direct 92 VLDL Cholesterol 49.4 H HDL Cholesterol 30 L Urine Color Urine Appearance Urine pH Ur Specific [place] Urine Protein Urine Glucose (UA) Urine Ketones Urine Blood Urine Nitrite Ur Leukocyte Esterase Urine WBC (Auto) Urine RBC (Auto) 08/13/20 13:15 Troponin I < 0.012 NT-Pro-B Natriuret Pep 66 Impressions: Chest X-Ray 08/13/20 12:59 IMPRESSION: NO SIGNIFICANT RADIOGRAPHIC FINDING IN THE CHEST. Assessment and Plan - Diagnosis (1) Diabetic ketoacidosis Qualifiers: Diabetes mellitus type: type 2 Diabetes mellitus complication detail: without coma Qualified Code(s): E11.10 - Type 2 diabetes mellitus with ketoacidosis without coma Is this a current diagnosis for this admission?: Yes (2) Hyperglycemia due to type 2 diabetes mellitus Qualifiers: Diabetes mellitus emt intermediate insulin use: without detention use Qualified Code(s): E11.65 - Type 2 diabetes mellitus with hyperglycemia Is this a current diagnosis for this admission?: Yes (3) Hyperlipidemia Qualifiers: Hyperlipidemia type: unspecified Qualified Code(s): E78.5 - Hyperlipidemia, unspecified Is this a current diagnosis for this admission?: Yes (4) Weight loss, unintentional Is this a current diagnosis for this admission?: Yes (5) HTN (hypertension) Qualifiers: Hypertension type: essential hypertension Qualified Code(s): I10 - Essential (primary) hypertension Is this a current diagnosis for this admission?: Yes (6) Acute exacerbation of COPD with asthma Is this a current diagnosis for this admission?: Yes (7) Hyperkalemia Is this a current diagnosis for this admission?: Yes (8) Weight loss Is this a current diagnosis for this admission?: Yes - Plan Summary Summary: Diabetic ketoacidosis Accu-Cheks and serial blood work to monitor electrolytes and anion gap. Continuous IV fluids. Repeat urinalysis for ketones monitoring. Insulin therapy with transition back to oral medications most likely. Instead of her glipizide we may add Januvia to the Metformin. We will need to monitor sliding scale requirements and Accu-Cheks towards the end of her hospitalization to determine the best outpatient treatment. Hyperglycemia due to diabetes mellitus type 2 Plan as above. Move towards cardiac/diabetic diet. Hyperkalemia Monitor electrolytes with serial laboratory studies. With aggressive IV fluids the potassium will decrease. Hyponatremia Due to hyperglycemia. When calculated the serum sodium corrects to normal. Exacerbation of COPD with asthma The patient did not appreciate that she was quite so wheezy. We will use scheduled nebulizers with as needed treatments initially. This will include duo nebs and budesonide. She does not require supplemental oxygen at this time but will monitor closely. Will transition back to Advair or other outpatient dual therapy inhaler with rescue albuterol towards the end of the hospitalization. Hypertension Continue enalapril and atenolol. Monitor serial vital signs. Hyperlipidemia Continue statin therapy. We will substitute atorvastatin for pravastatin during her hospitalization. 08/14/2020 DKA-lack of the expected improvement. I explained to patient that we will need to be more aggressive with her therapy. This includes n.p.o. status, infusion and frequent Accu-Cheks and laboratory studies. COPD-continue current regimen including nebulizer treatments Hypertension-continue current regimen. Adequate blood pressure control. Continue statin therapy. - Time Time Spent with patient: 15-24 minutes Medications reviewed and adjusted accordingly: Yes Anticipated Discharge Disposition: Home, Self Care Anticipated Discharge Timeframe: within 72 hours
[2020-08-14] MEDS: ENALAPRIL MALEATE 5 MG TABLET PO SCH (09:54)
[2020-08-14 13:44] LABS: APPEARANCE,URINE SLIGHTLY-CLOUDY; BILIRUBIN,URINE NEGATIVE (NEGATIVE); COLOR,URINE YELLOW; GLUCOSE, URINE >=500 mg/dL (NEGATIVE); KETONES,URINE 20 mg/dL (NEGATIVE); LEUKOCYTE ESTERASE,URINE MODERATE (NEGATIVE); NITRITE,URINE POSITIVE (NEGATIVE); PROTEIN,URINE NEGATIVE (NEGATIVE); URINE SPECIFIC GRAVITY 1.023; UROBILINOGEN,URINE NEGATIVE mg/dL (<2.0)
[2020-08-14] MEDS ORDERED: DEXTROSE 5%-NORMAL SALINE 1,000 ML IV PRN (14:08)
[2020-08-14 15:21] LABS: ANION GAP 11 (5-19); BLOOD UREA NITROGEN 17 mg/dL (7-20); CALCIUM 8.9 mg/dL (8.4-10.2); CARBON DIOXIDE 19 mmol/L (22-30); CHLORIDE 106 mmol/L (98-107); GLUCOSE 143 mg/dL (75-110); POTASSIUM 3.7 mmol/L (3.6-5.0)
[2020-08-14 18:40] LABS: APPEARANCE,URINE CLEAR; BILIRUBIN,URINE NEGATIVE (NEGATIVE); COLOR,URINE YELLOW; GLUCOSE, URINE >=500 mg/dL (NEGATIVE); KETONES,URINE 20 mg/dL (NEGATIVE); LEUKOCYTE ESTERASE,URINE MODERATE (NEGATIVE); NITRITE,URINE NEGATIVE (NEGATIVE); PROTEIN,URINE NEGATIVE (NEGATIVE); URINE SPECIFIC GRAVITY 1.015; UROBILINOGEN,URINE NEGATIVE mg/dL (<2.0)
[2020-08-14 19:03] LABS: ANION GAP 7 (5-19); BLOOD UREA NITROGEN 15 mg/dL (7-20); CALCIUM 8.8 mg/dL (8.4-10.2); CARBON DIOXIDE 23 mmol/L (22-30); CHLORIDE 105 mmol/L (98-107); GLUCOSE 187 mg/dL (75-110); POTASSIUM 3.7 mmol/L (3.6-5.0)
[2020-08-14] MEDS: NORMAL SALINE 1000 ML 1,000 ML IV PRN (19:41)
[2020-08-14] MEDS: INSULIN GLARGINE,HUM.REC.ANLOG 1,000 UNIT/10 ML VIAL SUBCUT SCH (21:38)
[2020-08-14] MEDS: ATORVASTATIN CALCIUM 40 MG TABLET PO SCH (21:38)
[2020-08-15] MEDS: IPRATROPIUM/ALBUTEROL 0.5-2.5 MG/3 ML AMPUL NEB SCH ×4 (02:26→20:45)
[2020-08-15] MEDS: PANTOPRAZOLE SODIUM 20 MG TABLET.DR PO SCH (05:14)
[2020-08-15 07:03] LABS: APPEARANCE,URINE SLIGHTLY-CLOUDY; BILIRUBIN,URINE NEGATIVE (NEGATIVE); COLOR,URINE YELLOW; GLUCOSE, URINE >=500 mg/dL (NEGATIVE); KETONES,URINE 20 mg/dL (NEGATIVE); LEUKOCYTE ESTERASE,URINE SMALL (NEGATIVE); NITRITE,URINE NEGATIVE (NEGATIVE); PROTEIN,URINE NEGATIVE (NEGATIVE); URINE SPECIFIC GRAVITY 1.017; UROBILINOGEN,URINE NEGATIVE mg/dL (<2.0)
[2020-08-15 07:30] LABS: ABSOLUTE EOSINOPHILS # (AUTO) 0.1 10^3/uL (0.0-0.6); ABSOLUTE LYMPHOCYTES (AUTO) 1.3 10^3/uL (0.5-4.7); ABSOLUTE MONOCYTES (AUTO) 0.3 10^3/uL (0.1-1.4); ABSOLUTE NEUT (AUTO) 2.7 10^3/uL (1.7-8.2); BASOPHILS % (AUTO) 0.5 % (0-2); EOSINOPHILS % (AUTO) 1.3 % (0-6); HEMATOCRIT 36.2 % (36.0-47.0); HEMOGLOBIN 12.1 g/dL (12.0-15.5); LYMPHOCYTES % (AUTO) 30.1 % (13-45); MEAN CORPUSCULAR HEMOGLOBIN 30.4 pg (27.0-33.4); MEAN CORPUSCULAR HGB CONC 33.3 g/dL (32.0-36.0); MEAN CORPUSCULAR VOLUME 91 fl (80-97); MONOCYTES % (AUTO) 6.5 % (3-13); PLATELET COUNT 214 10^3/uL (150-450); RED BLOOD COUNT 3.97 10^6/uL (3.72-5.28); RED CELL DISTRIBUTION WIDTH 13.9 % (11.5-14.0); SEGMENTED NEUTROPHILS % (AUTO) 61.6 % (42-78); TOTAL CELLS COUNTED % (AUTO) 100 %; WHITE BLOOD COUNT 4.3 10^3/uL (4.0-10.5)
[2020-08-15] MEDS: NORMAL SALINE 1000 ML 1,000 ML IV PRN (07:45)
[2020-08-15] MEDS: BUDESONIDE NEB 0.5 MG/2 ML AMPUL NEB SCH ×2 (07:46→20:45)
[2020-08-15 07:51] LABS: ANION GAP 11 (5-19); BLOOD UREA NITROGEN 10 mg/dL (7-20); CALCIUM 9.1 mg/dL (8.4-10.2); CARBON DIOXIDE 21 mmol/L (22-30); CHLORIDE 106 mmol/L (98-107); GLUCOSE 239 mg/dL (75-110); POTASSIUM 3.6 mmol/L (3.6-5.0)
[2020-08-15] MEDS: INSULIN LISPRO 100 UNIT/ML 3 ML VIAL SUBCUT SCH ×6 (08:34→22:04)
[2020-08-15] MEDS: ATENOLOL 50 MG TABLET PO SCH (08:34)
[2020-08-15] MEDS: GUAIFENESIN 600 MG TABLET.SA PO SCH ×2 (09:35→22:04)
[2020-08-15] MEDS: CETIRIZINE 10 MG TABLET PO SCH (09:35)
[2020-08-15] MEDS: ASPIRIN 81 MG TABLET, ENT COATED PO SCH (09:35)
[2020-08-15] MEDS: ENALAPRIL MALEATE 5 MG TABLET PO SCH (09:35)
[2020-08-15] MEDS: SENNOSIDES/DOCUSATE 8.6-50 MG 1 EACH TABLET PO SCH ×2 (09:35→17:01)
[2020-08-15] MEDS: MONTELUKAST SODIUM 10 MG TABLET PO SCH (09:35)
[2020-08-15] MEDS: POLYETHYLENE GLYCOL 3350 POWDER 17 GM/1 PACKET PO SCH (09:35)
[2020-08-15] MEDS: INSULIN GLARGINE,HUM.REC.ANLOG 1,000 UNIT/10 ML VIAL SUBCUT SCH (09:37)
[2020-08-15] MEDS: ENOXAPARIN SODIUM INJ 40 MG/0.4 ML DISP.SYRIN SUBCUT SCH (09:39)
[2020-08-15] MEDS ORDERED: NORMAL SALINE 1000 ML 1,000 ML IV ONE (10:32)
[2020-08-15] MEDS ORDERED: POTASSIUM CHLORIDE 10 MEQ TABLET.ER PO ONE (10:40)
--- NOTE | 2020-08-15 11:08 | CDI QUERY ---
CDI Query CDI Review: We are seeking further clarification of documentation to reflect the severity of illness of your patient. Per H&P: She was noted to have significant wheezing bilaterally. She remarked that she has noticed some increasing shortness of breath lately. Imaging did show significant flattening of the diaphragms and hyperinflation but no evidence of infection/infiltrate. Exacerbation of COPD with asthma The patient did not appreciate that she was quite so wheezy. We will use scheduled nebulizers with as needed treatments initially. This will include duo nebs and budesonide. She does not require supplemental oxygen at this time but will monitor closely. Will transition back to Advair or other outpatient dual therapy inhaler with rescue albuterol towards the end of the hospitalization. Based on your medical judgement, can you further clarify the severity of this patients asthma in the Progress Notes: > Mild intermittent > Mild persistent > Moderate persistent > Severe persistent Thank you for your consideration. LUIS ANTONIO Jauregui RN Clinical Extrusion Machine Operator Physician Advisor [email or web address] Severity of Asthma Classification Presentation of Asthma before (without) Treatment Type of Asthma Symptoms Nighttime Symptoms Lung Function Severe persistent Continual symptoms Limited physical activity Frequent exacerbations Frequent FEV1 or PEF = 60% predicted PEF variability > 30% Moderate persistent Daily symptoms Daily use of inhaled short-acting beta2-agnonist Exacerbation of affect activity Exacerbation = 2 times/week = 1 day(s) > 1time/week FEV1 or PEF 60-80% predicted PEF variability > 30% Mild Persistent Symptoms > 2 times/week but < 1 time/day Exacerbation may affect activity > 2 times/month FEV1 or PEF = 80% predicted p PEF variability 20-30% Mild intermittent Symptoms = 2 times/week Asymptomatic and normal PEF between exacerbations Exacerbations of varying intensity are brief (a few hours to a few days) = 2 times/month FEV1 or PEF = 80% predicted PEF variability < 20% FEV1 = The maximal amount of air a person can forcefully exhale over one second accounting for the variables of height, weight, and race used to denote the degree of obstruction with asthma PEF= Peak Expiratory Flow is the maximum flow of expelled air during expiration following full inspiration (big breath in and then big breath out) Source: Source: National National Heart, Lung, and Blood [place] - http://www nhlbi nih gov/guidelines/asthma/asthgdln htm http:// www.nhlbi.nih.gov/guidelines/asthma/asthgdln.htm
[2020-08-15] MEDS ORDERED: INSULIN GLARGINE,HUM.REC.ANLOG 1,000 UNIT/10 ML VIAL (PYX) SUBCUT ONE (11:45)
[2020-08-15 16:18] LABS: APPEARANCE,URINE CLEAR; BILIRUBIN,URINE NEGATIVE (NEGATIVE); COLOR,URINE YELLOW; GLUCOSE, URINE >=500 mg/dL (NEGATIVE); KETONES,URINE NEGATIVE (NEGATIVE); LEUKOCYTE ESTERASE,URINE TRACE (NEGATIVE); NITRITE,URINE POSITIVE (NEGATIVE); PROTEIN,URINE NEGATIVE (NEGATIVE); URINE SPECIFIC GRAVITY 1.005; UROBILINOGEN,URINE NEGATIVE mg/dL (<2.0)
[2020-08-15 16:20] LABS: ANION GAP 7 (5-19); BLOOD UREA NITROGEN 8 mg/dL (7-20); CALCIUM 8.9 mg/dL (8.4-10.2); CARBON DIOXIDE 20 mmol/L (22-30); CHLORIDE 109 mmol/L (98-107); POTASSIUM 3.6 mmol/L (3.6-5.0)
[2020-08-15 16:21] LABS: GLUCOSE 51 mg/dL (75-110)
--- NOTE | 2020-08-15 18:05 | PDOC PROGRESS REPORT ---
Subjective Progress Note for:: 08/15/20 Subjective:: Patient is resting in bed comfortably. She states that she feels better than she has in a long time. She tells me that she has been administering her insulin therapy on her own raves about the amount of education and support she has received from medical staff thus far. No complaints questions or concerns for me today. Reason For Visit: DKA,HYPERTENSION,HYPERLIPIDEMIA,DIABETES MELLITUS Physical Exam Vital Signs: Temp Pulse Resp BP Pulse Ox 97.5 F 68 16 141/65 H 100 08/15/20 15:19 08/15/20 15:19 08/15/20 15:19 08/15/20 15:19 08/15/20 15:19 Intake & Output 08/14/20 08/15/20 08/16/20 06:59 06:59 06:59 Intake Total 1540 2815 1440 Output Total 1100 500 Balance 440 2315 1440 Weight 53.3 kg 53.3 kg 53.3 kg General appearance: PRESENT: no acute distress, cooperative, well-developed Head exam: PRESENT: atraumatic, normocephalic Eye exam: PRESENT: EOMI Mouth exam: PRESENT: moist, tongue midline Neck exam: PRESENT: full ROM. ABSENT: tenderness Respiratory exam: PRESENT: clear to auscultation andres, unlabored. ABSENT: wheezes Cardiovascular exam: PRESENT: RRR, +S1, +S2. ABSENT: diastolic murmur, systolic murmur Pulses: PRESENT: normal radial pulses GI/Abdominal exam: PRESENT: normal bowel sounds, soft. ABSENT: distended, firm, tenderness Extremities exam: PRESENT: full ROM. ABSENT: pedal edema Musculoskeletal exam: PRESENT: ambulatory, full ROM. ABSENT: deformity, dislocation Neurological exam: PRESENT: alert, awake, oriented to person, oriented to place, oriented to time, oriented to situation, CN II-XII grossly intact Psychiatric exam: PRESENT: appropriate affect, normal mood Skin exam: PRESENT: dry, intact, warm Results Laboratory Results: 08/15/20 06:35 08/15/20 14:52 08/14/20 08/14/20 08/15/20 18:05 18:09 06:32 WBC RBC Hgb Hct MCV MCH MCHC RDW Plt Count Seg Neutrophils % Sodium 135.2 L Potassium 3.7 Chloride 105 Carbon Dioxide 23 Anion Gap 7 BUN 15 Creatinine 0.46 L Est GFR ( Amer) > 60 Glucose 187 H Calcium 8.8 Magnesium Urine Color YELLOW YELLOW Urine Appearance CLEAR SLIGHTLY-CLOUDY Urine pH 5.0 5.0 Ur Specific [place] 1.015 1.017 Urine Protein NEGATIVE NEGATIVE Urine Glucose (UA) >=500 H >=500 H Urine Ketones 20 H 20 H Urine Blood NEGATIVE NEGATIVE Urine Nitrite NEGATIVE NEGATIVE Ur Leukocyte Esterase MODERATE H SMALL H Urine WBC (Auto) 60 27 Urine RBC (Auto) 4 3 08/15/20 08/15/20 08/15/20 06:35 06:35 14:52 WBC 4.3 RBC 3.97 Hgb 12.1 Hct 36.2 MCV 91 MCH 30.4 MCHC 33.3 RDW 13.9 Plt Count 214 Seg Neutrophils % 61.6 Sodium 137.6 136.4 L Potassium 3.6 3.6 Chloride 106 109 H Carbon Dioxide 21 L 20 L Anion Gap 11 7 BUN 10 8 Creatinine 0.49 L 0.48 L Est GFR ( Amer) > 60 > 60 Glucose 239 H 51 L Calcium 9.1 8.9 Magnesium 1.7 1.5 L Urine Color Urine Appearance Urine pH Ur Specific [place] Urine Protein Urine Glucose (UA) Urine Ketones Urine Blood Urine Nitrite Ur Leukocyte Esterase Urine WBC (Auto) Urine RBC (Auto) 08/15/20 15:35 WBC RBC Hgb Hct MCV MCH MCHC RDW Plt Count Seg Neutrophils % Sodium Potassium Chloride Carbon Dioxide Anion Gap BUN Creatinine Est GFR ( Amer) Glucose Calcium Magnesium Urine Color YELLOW Urine Appearance CLEAR Urine pH 5.0 Ur Specific [place] 1.005 Urine Protein NEGATIVE Urine Glucose (UA) >=500 H Urine Ketones NEGATIVE Urine Blood NEGATIVE Urine Nitrite POSITIVE H Ur Leukocyte Esterase TRACE H Urine WBC (Auto) 6 Urine RBC (Auto) 1 08/13/20 13:15 Troponin I < 0.012 NT-Pro-B Natriuret Pep 66 Impressions: Chest X-Ray 08/13/20 12:59 IMPRESSION: NO SIGNIFICANT RADIOGRAPHIC FINDING IN THE CHEST. Assessment and Plan - Diagnosis (1) Diabetic ketoacidosis Qualifiers: Diabetes mellitus type: type 2 Diabetes mellitus complication detail: without coma Qualified Code(s): E11.10 - Type 2 diabetes mellitus with ketoacidosis without coma Is this a current diagnosis for this admission?: Yes (2) Hyperglycemia due to type 2 diabetes mellitus Qualifiers: Diabetes mellitus senior living insulin use: without senior living use Qualified Code(s): E11.65 - Type 2 diabetes mellitus with hyperglycemia Is this a current diagnosis for this admission?: Yes (3) Hyperlipidemia Qualifiers: Hyperlipidemia type: unspecified Qualified Code(s): E78.5 - Hyperlipidemia, unspecified Is this a current diagnosis for this admission?: Yes (4) Weight loss, unintentional Is this a current diagnosis for this admission?: Yes (5) HTN (hypertension) Qualifiers: Hypertension type: essential hypertension Qualified Code(s): I10 - Essential (primary) hypertension Is this a current diagnosis for this admission?: Yes (6) Acute exacerbation of COPD with asthma Is this a current diagnosis for this admission?: Yes (7) Hyperkalemia Is this a current diagnosis for this admission?: Yes - Plan Summary Summary: Diabetic ketoacidosis Accu-Cheks and serial blood work to monitor electrolytes and anion gap. Continuous IV fluids. Repeat urinalysis for ketones monitoring. Insulin therapy with transition back to oral medications most likely. Instead of her glipizide we may add Januvia to the Metformin. We will need to monitor sliding scale requirements and Accu-Cheks towards the end of her hospitalization to de termine the best outpatient treatment. Hyperglycemia due to diabetes mellitus type 2 Plan as above. Move towards cardiac/diabetic diet. Hyperkalemia Monitor electrolytes with serial laboratory studies. With aggressive IV fluids the potassium will decrease. Hyponatremia Due to hyperglycemia. When calculated the serum sodium corrects to normal. Exacerbation of COPD with asthma The patient did not appreciate that she was quite so wheezy. We will use scheduled nebulizers with as needed treatments initially. This will include duo nebs and budesonide. She does not require supplemental oxygen at this time but will monitor closely. Will transition back to Advair or other outpatient dual t herapy inhaler with rescue albuterol towards the end of the hospitalization. Hypertension Continue enalapril and atenolol. Monitor serial vital signs. Hyperlipidemia Continue statin therapy. We will substitute atorvastatin for pravastatin during her hospitalization. 08/14/2020 DKA-lack of the expected improvement. I explained to patient that we will need to be more aggressive with her therapy. This includes n.p.o. status, infusion and frequent Accu-Cheks and laboratory studies. COPD-continue current regimen including nebulizer treatments Hypertension-continue current regimen. Adequate blood pressure control. Continue statin therapy. 08/15/2020 DKA: Carbon dioxide continues to be low (20). Ketones noted on morning UA, negative on afternoon UA. Continue to monitor. Glucose readings consistently elevated ~200s. Changes Lantus to 25u and initiated 4units humalog with meals. continue with sliding scale. Continue to monitor closely. Patient has received diabetic education at this time. She is administering her own insulin. Plan to d/c on insulin therapy. COPD: Continue with current regimen. HTN: Cnt current regimen. HLD: Continue statin therapy. Plan to dc home once DKA resolves. Continue to monitor. She will need to be dc home on insulin therapy. - Time Time Spent with patient: 15-24 minutes Medications reviewed and adjusted accordingly: Yes Anticipated Discharge Disposition: Home, Self Care Anticipated Discharge Timeframe: within 48 hours
[2020-08-15] MEDS: ATORVASTATIN CALCIUM 40 MG TABLET PO SCH (22:04)
[2020-08-16] MEDS: IPRATROPIUM/ALBUTEROL 0.5-2.5 MG/3 ML AMPUL NEB SCH ×3 (02:00→13:13)
[2020-08-16] MEDS: PANTOPRAZOLE SODIUM 20 MG TABLET.DR PO SCH (05:41)
[2020-08-16 06:46] LABS: ABSOLUTE EOSINOPHILS # (AUTO) 0.1 10^3/uL (0.0-0.6); ABSOLUTE LYMPHOCYTES (AUTO) 1.5 10^3/uL (0.5-4.7); ABSOLUTE MONOCYTES (AUTO) 0.5 10^3/uL (0.1-1.4); ABSOLUTE NEUT (AUTO) 2.8 10^3/uL (1.7-8.2); BASOPHILS % (AUTO) 0.6 % (0-2); EOSINOPHILS % (AUTO) 1.5 % (0-6); HEMATOCRIT 33.8 % (36.0-47.0); HEMOGLOBIN 11.3 g/dL (12.0-15.5); LYMPHOCYTES % (AUTO) 31.2 % (13-45); MEAN CORPUSCULAR HEMOGLOBIN 30.4 pg (27.0-33.4); MEAN CORPUSCULAR HGB CONC 33.5 g/dL (32.0-36.0); MEAN CORPUSCULAR VOLUME 91 fl (80-97); MONOCYTES % (AUTO) 9.6 % (3-13); PLATELET COUNT 193 10^3/uL (150-450); RED BLOOD COUNT 3.73 10^6/uL (3.72-5.28); SEGMENTED NEUTROPHILS % (AUTO) 57.1 % (42-78); TOTAL CELLS COUNTED % (AUTO) 100 %; WHITE BLOOD COUNT 4.9 10^3/uL (4.0-10.5)
[2020-08-16 07:14] LABS: ANION GAP 6 (5-19); BLOOD UREA NITROGEN 7 mg/dL (7-20); CALCIUM 8.9 mg/dL (8.4-10.2); CARBON DIOXIDE 24 mmol/L (22-30); CHLORIDE 106 mmol/L (98-107); GLUCOSE 237 mg/dL (75-110); POTASSIUM 3.8 mmol/L (3.6-5.0)
[2020-08-16] MEDS: BUDESONIDE NEB 0.5 MG/2 ML AMPUL NEB SCH (07:53)
[2020-08-16] MEDS: INSULIN LISPRO 100 UNIT/ML 3 ML VIAL SUBCUT SCH ×4 (08:36→12:34)
[2020-08-16] MEDS: ATENOLOL 50 MG TABLET PO SCH (08:42)
[2020-08-16] MEDS ORDERED: METFORMIN HCL 500 MG TABLET PO SCH (09:00)
[2020-08-16] MEDS: CETIRIZINE 10 MG TABLET PO SCH (09:15)
[2020-08-16] MEDS: ASPIRIN 81 MG TABLET, ENT COATED PO SCH (09:15)
[2020-08-16] MEDS: GUAIFENESIN 600 MG TABLET.SA PO SCH (09:15)
[2020-08-16] MEDS: SENNOSIDES/DOCUSATE 8.6-50 MG 1 EACH TABLET PO SCH (09:15)
[2020-08-16] MEDS: MONTELUKAST SODIUM 10 MG TABLET PO SCH (09:16)
[2020-08-16] MEDS: POLYETHYLENE GLYCOL 3350 POWDER 17 GM/1 PACKET PO SCH (09:17)
[2020-08-16] MEDS: ENOXAPARIN SODIUM INJ 40 MG/0.4 ML DISP.SYRIN SUBCUT SCH (09:17)
[2020-08-16] MEDS ORDERED: ENALAPRIL MALEATE 10 MG TABLET PO SCH (10:00)
[2020-08-16] MEDS ORDERED: METOPROLOL SUCCINATE 25 MG TAB.SR.24H PO SCH (10:00)
[2020-08-16] MEDS ORDERED: INSULIN GLARGINE,HUM.REC.ANLOG 1,000 UNIT/10 ML VIAL SUBCUT SCH (10:00)
[2020-08-16 11:00] LABS: APPEARANCE,URINE SLIGHTLY-CLOUDY; BILIRUBIN,URINE NEGATIVE (NEGATIVE); COLOR,URINE YELLOW; GLUCOSE, URINE >=500 mg/dL (NEGATIVE); KETONES,URINE TRACE mg/dL (NEGATIVE); LEUKOCYTE ESTERASE,URINE TRACE (NEGATIVE); NITRITE,URINE POSITIVE (NEGATIVE); PROTEIN,URINE NEGATIVE (NEGATIVE); URINE SPECIFIC GRAVITY 1.017; UROBILINOGEN,URINE NEGATIVE mg/dL (<2.0)
[2020-08-16 13:11] VITALS: BP 139/73
--- NOTE | 2020-08-16 17:48 | PDOC DISCHARGE SUMMARY ---
Impression - Admit/DC Date/PCP Admission Date/Primary Care Provider: 08/13/20 16:31 VITOR CUNNINGHAM PA-C Discharge Date: 08/16/20 - Discharge Diagnosis (1) Diabetic ketoacidosis Is this a current diagnosis for this admission?: Yes (2) Hyperglycemia due to type 2 diabetes mellitus Is this a current diagnosis for this admission?: Yes (3) Hyperlipidemia Is this a current diagnosis for this admission?: Yes (4) Weight loss, unintentional Is this a current diagnosis for this admission?: Yes (5) HTN (hypertension) Is this a current diagnosis for this admission?: Yes (6) Acute exacerbation of COPD with asthma Is this a current diagnosis for this admission?: Yes (7) Hyperkalemia Is this a current diagnosis for this admission?: Yes - Assessment Summary: Job vargas is a 65-year-old female who was admitted to the hospital on 08/13/2020 for further evaluation and treatment of diabetic ketoacidosis. He has a history of diabetes previously treated with Metformin and glipizide. On initial presentation she was found to have a glucose greater than 600 with a hemoglobin A1c 13.2, a decreased pH, a increase potassium and increased anion gap. Her urine was positive for ketones and glucose. Insulin therapy and continue with IV fluids was initiated and she was monitored with routine Accu- Cheks, serial blood work monitoring electrolytes and routine urinalysis checking for ketones. Noted electrolyte improvement with glycemic improvement and IV fluids. Persistently decreased carbon dioxide levels and presence of ketones in the urine complicated patient hospitalization visit with improvement seen upon initiation of insulin regimen including basal insulin with prandial insulin and sliding scale insulin. Patient was provided diabetic education and instructed on proper application of insulin. Additionally she received nutritional education. She is to resume home dose of Metformin and glipizide initially introduced Lantus 25 units to be taken every morning. Patient was informed of this and is understanding and agreeable to this means of treatment. Given her age and history of diabetes we have changed her pravastatin to 40 mg atorvastatin daily. Additionally her blood pressure was found to be elevated throughout hospitalization this increased enalapril to 10 mg daily. Patient was made aware of these changes in medication she expressed understanding and agreement to needed treatment. Patient is stable and ready for discharge. - Additional Information Resuscitation Status: Full Code Discharge Diet: Diabetic Discharge Activity: Activity As Tolerated Referrals: [facility] [Outside] - 08/21/20 2:00 pm (WITH DOCTOR HENRI ) VITOR CUNNINGHAM PA-C [Primary Care Provider] - Follow up as needed (08/16/20 1309 CALLED BUT NO ANSWER) Prescriptions: Insulin Glargine,Hum.rec.anlog [Basaglar Kwikpen U-100] 25 unit SQ DAILY #5 insuln.pen Atorvastatin Calcium [Lipitor 40 mg Tablet] 40 mg PO QHS #30 tablet Enalapril Maleate [Vasotec 10 mg Tablet] 10 mg PO DAILY #30 tablet Home Medications: Albuterol Sulfate [Proair HFA] 2 puff IH Q4HP PRN 02/13/18 Cetirizine HCl 10 mg PO DAILY 02/13/18 Glipizide [Glipizide ER] 5 mg PO DAILY 02/13/18 Metformin HCl [Metformin ER Gastric] 1,000 mg PO BID 02/13/18 Montelukast Sodium 10 mg PO DAILY 02/13/18 Atenolol 50 mg PO QAM #0 02/16/18 Calcium Carbonate/Vitamin D3 [Calcium 500-Vit D3 400 Tablet] 1 each PO DAILY 08/14/20 Multivitamin [Tab-A-Anjana (Multiple Vitamin) Tablet] 1 tab PO DAILY 08/14/20 Atorvastatin Calcium [Lipitor 40 mg Tablet] 40 mg PO QHS #30 tablet 08/16/20 Enalapril Maleate [Vasotec 10 mg Tablet] 10 mg PO DAILY #30 tablet 08/16/20 Insulin Glargine,Hum.rec.anlog [Basaglar Kwikpen U-100] 25 unit SQ DAILY #5 insuln.pen 08/16/20 History of Present Illiness History of Present Illness: As per HPI documented on admission on 08/13/2020: "JOB VARGAS is a 65 year old female with a history of diabetes on Metformin and glipizide. She also has hypertension, hyperlipidemia, COPD and allergies. She states that she noticed weight loss earlier in the year. In the spring she was approximately 130 pounds and then by March/April she dropped to 115. Her weight improved back to 130 but then by this week she was down to 108 pounds. She usually is very active. She began to notice her clothing was becoming somewhat loose fitting and she did not have the stamina that she is to. She began to lose her appetite as well. She presented to the hospital and was found to have a glucose greater than 600. Her pH was decreased and her blood work revealed increase potassium and an anion gap. Urine was positive for ketones and glucose. No evidence of infection. She was noted to have significant wheezing bilaterally. She remarked that she has noticed some increasing shortness of breath lately. Imaging did show significant flattening of the diaphragms and hyperinflation but no evidence of infection/infiltrate." Hospital Course Hospital Course: 08/13/2020 Diabetic ketoacidosis Accu-Cheks and serial blood work to monitor electrolytes and anion gap. Continuous IV fluids. Repeat urinalysis for ketones monitoring. Insulin therapy with transition back to oral medications most likely. Instead of her glipizide we may add Januvia to the Metformin. We will need to monitor sliding scale requirements and Accu-Cheks towards the end of her hospitalization to determine the best outpatient treatment. Hyperglycemia due to diabetes mellitus type 2 Plan as above. Move towards cardiac/diabetic diet. Hyperkalemia Monitor electrolytes with serial laboratory studies. With aggressive IV fluids the potassium will decrease. Hyponatremia Due to hyperglycemia. When calculated the serum sodium corrects to normal. Exacerbation of COPD with asthma The patient did not appreciate that she was quite so wheezy. We will use scheduled nebulizers with as needed treatments initially. This will include duo nebs and budesonide. She does not require supplemental oxygen at this time but will monitor closely. Will transition back to Advair or other outpatient dual therapy inhaler with rescue albuterol towards the end of the hospitalization. Hypertension Continue enalapril and atenolol. Monitor serial vital signs. Hyperlipidemia Continue statin therapy. We will substitute atorvastatin for pravastatin during her hospitalization. 08/14/2020 DKA-lack of the expected improvement. I explained to patient that we will need to be more aggressive with her therapy. This includes n.p.o. status, infusion and frequent Accu-Cheks and laboratory studies. COPD-continue current regimen including nebulizer treatments Hypertension-continue current regimen. Adequate blood pressure control. Continue statin therapy. 08/15/2020 DKA: Carbon dioxide continues to be low (20). Ketones noted on morning UA, negative on afternoon UA. Continue to monitor. Glucose readings consistently elevated ~200s. Changes Lantus to 25u and initiated 4units humalog with meals. continue with sliding scale. Continue to monitor closely. Patient has received diabetic education at this time. She is administering her own insulin. Plan to d/c on insulin therapy. COPD: Continue with current regimen. HTN: Cnt current regimen. HLD: Continue statin therapy. Plan to dc home once DKA resolves. Continue to monitor. She will need to be dc home on insulin therapy. Physical Exam Vital Signs: Temp Pulse Resp BP Pulse Ox 98.2 F 85 14 139/73 H 100 08/16/20 13:04 08/16/20 13:04 08/16/20 13:04 08/16/20 13:04 08/16/20 13:04 Intake & Output 08/15/20 08/16/20 08/17/20 06:59 06:59 06:59 Intake Total 3815 3310 Output Total 500 Balance 3315 3310 Weight 53.3 kg 55.8 kg Additional comments: General appearance: PRESENT: no acute distress, cooperative, well-developed Head exam: PRESENT: atraumatic, normocephalic Eye exam: PRESENT: EOMI Mouth exam: PRESENT: moist, tongue midline Neck exam: PRESENT: full ROM. ABSENT: tenderness Respiratory exam: PRESENT: clear to auscultation andres, unlabored. ABSENT: wheezes Cardiovascular exam: PRESENT: RRR, +S1, +S2. ABSENT: diastolic murmur, systolic murmur Pulses: PRESENT: normal radial pulses GI/Abdominal exam: PRESENT: normal bowel sounds, soft. ABSENT: distended, firm, tenderness Extremities exam: PRESENT: full ROM. ABSENT: pedal edema Musculoskeletal exam: PRESENT: ambulatory, full ROM. ABSENT: deformity, dislocation Neurological exam: PRESENT: alert, awake, oriented to person, oriented to place, oriented to time, oriented to situation, CN II-XII grossly intact Psychiatric exam: PRESENT: appropriate affect, normal mood Skin exam: PRESENT: dry, intact, warm Results Laboratory Results: WBC 4.9 10^3/uL (4.0-10.5) 08/16/20 06:18 RBC 3.73 10^6/uL (3.72-5.28) 08/16/20 06:18 Hgb 11.3 g/dL (12.0-15.5) L 08/16/20 06:18 Hct 33.8 % (36.0-47.0) L 08/16/20 06:18 MCV 91 fl (80-97) 08/16/20 06:18 MCH 30.4 pg (27.0-33.4) 08/16/20 06:18 MCHC 33.5 g/dL (32.0-36.0) 08/16/20 06:18 RDW 14.0 % (11.5-14.0) 08/16/20 06:18 Plt Count 193 10^3/uL (150-450) 08/16/20 06:18 Lymph % (Auto) 31.2 % (13-45) 08/16/20 06:18 [place] % (Auto) 9.6 % (3-13) 08/16/20 06:18 Eos % (Auto) 1.5 % (0-6) 08/16/20 06:18 Baso % (Auto) 0.6 % (0-2) 08/16/20 06:18 Absolute Neuts (auto) 2.8 10^3/uL (1.7-8.2) 08/16/20 06:18 Absolute Lymphs (auto) 1.5 10^3/uL (0.5-4.7) 08/16/20 06:18 Absolute Monos (auto) 0.5 10^3/uL (0.1-1.4) 08/16/20 06:18 Absolute Eos (auto) 0.1 10^3/uL (0.0-0.6) 08/16/20 06:18 Absolute Basos (auto) 0.0 10^3/uL (0.0-0.2) 08/16/20 06:18 Seg Neutrophils % 57.1 % (42-78) 08/16/20 06:18 PT 12.4 SEC (11.4-15.4) 08/13/20 13:15 INR 0.90 08/13/20 13:15 APTT 29.4 SEC (23.5-35.8) 08/13/20 13:15 VBG pH 7.26 (7.30-7.42) L 08/13/20 16:00 VBG pCO2 48.0 mmHg (35-63) 08/13/20 16:00 VBG HCO3 20.8 mmol/L (20-32) 08/13/20 16:00 VBG Base Excess -6.5 mmol/L 08/13/20 16:00 Sodium 136.1 mmol/L (137-145) L 08/16/20 06:18 Potassium 3.8 mmol/L (3.6-5.0) 08/16/20 06:18 Chloride 106 mmol/L (98-107) 08/16/20 06:18 Carbon Dioxide 24 mmol/L (22-30) 08/16/20 06:18 Anion Gap 6 (5-19) 08/16/20 06:18 BUN 7 mg/dL (7-20) 08/16/20 06:18 Creatinine 0.49 mg/dL (0.52-1.25) L 08/16/20 06:18 Est GFR ( Amer) > 60 (>60) 08/16/20 06:18 Est GFR (MDRD) Non-Af > 60 (>60) 08/16/20 06:18 Glucose 237 mg/dL (75-110) H 08/16/20 06:18 POC Glucose 242 mg/dL (70-110) H 08/16/20 12:06 Hemoglobin A1c % 13.2 % (4.7-6.0) H 08/14/20 04:48 Calcium 8.9 mg/dL (8.4-10.2) 08/16/20 06:18 Magnesium 1.5 mg/dL (1.6-2.3) L 08/15/20 14:52 Total Bilirubin 0.7 mg/dL (0.2-1.3) 08/13/20 13:15 Direct Bilirubin 0.2 mg/dL (0.0-0.4) 08/13/20 13:15 Neonat Total Bilirubin Not Reportable 08/13/20 13:15 Neonat Direct Bilirubin Not Reportable 08/13/20 13:15 Neonat Indirect Bili Not Reportable 08/13/20 13:15 AST 21 U/L (14-36) 08/13/20 13:15 ALT 13 U/L (<35) 08/13/20 13:15 Alkaline Phosphatase 178 U/L (38-126) H 08/13/20 13:15 Troponin I < 0.012 ng/mL 08/13/20 13:15 NT-Pro-B Natriuret Pep 66 pg/mL (<125) 08/13/20 13:15 Total Protein 7.5 g/dL (6.3-8.2) 08/13/20 13:15 Albumin 4.9 g/dL (3.5-5.0) 08/13/20 13:15 Triglycerides 247 mg/dL (<150) H 08/14/20 04:48 Cholesterol 156.95 mg/dL (0-200) 08/14/20 04:48 LDL Cholesterol Direct 92 mg/dL (<100) 08/14/20 04:48 VLDL Cholesterol 49.4 mg/dL (10-31) H 08/14/20 04:48 HDL Cholesterol 30 mg/dL (>40) L 08/14/20 04:48 Beta-Hydroxybutyrate 60 mg/dL (.) H 08/13/20 16:00 Urine Color YELLOW 08/16/20 10:10 Urine Appearance SLIGHTLY-CLOUDY 08/16/20 10:10 Urine pH 5.0 (5.0-9.0) 08/16/20 10:10 Ur Specific [place] 1.017 08/16/20 10:10 Urine Protein NEGATIVE mg/dL (NEGATIVE) 08/16/20 10:10 Urine Glucose (UA) >=500 mg/dL (NEGATIVE) H 08/16/20 10:10 Urine Ketones TRACE mg/dL (NEGATIVE) H 08/16/20 10:10 Urine Blood NEGATIVE (NEGATIVE) 08/16/20 10:10 Urine Nitrite POSITIVE (NEGATIVE) H 08/16/20 10:10 Urine Nitrite (Reflex) NEGATIVE (NEGATIVE) 08/13/20 13:15 Urine Bilirubin NEGATIVE (NEGATIVE) 08/16/20 10:10 Urine Urobilinogen NEGATIVE mg/dL (<2.0) 08/16/20 10:10 Ur Leukocyte Esterase TRACE (NEGATIVE) H 08/16/20 10:10 Leukocyte Esterase Rfl NEGATIVE (NEGATIVE) 08/13/20 13:15 Urine WBC (Auto) 29 /HPF 08/16/20 10:10 Urine RBC (Auto) 1 /HPF 08/16/20 10:10 Urine Bacteria (Auto) TRACE /HPF 08/15/20 15:35 Urine WBC (Reflex) 6 /HPF 08/13/20 13:15 Squamous Epi Cells Auto 1 /HPF 08/16/20 10:10 Urine Mucus (Auto) RARE /LPF 08/16/20 10:10 Urine Ascorbic Acid NEGATIVE (NEGATIVE) 08/16/20 10:10 08/13/20 13:15 Troponin I < 0.012 NT-Pro-B Natriuret Pep 66 Impressions: Chest X-Ray 08/13/20 12:59 IMPRESSION: NO SIGNIFICANT RADIOGRAPHIC FINDING IN THE CHEST. Plan Health Concerns: Diabetes mellitus Type 2, poorly controlled Plan of Treatment: DKA: Resolved with treatment as discussed above. Implement home insulin therapy of Lantus 25units q am in addition to Metformin 1000mg BID and Glipizide 5mg daily. Recommend checking glucose level three times daily. Recommend keeping glucose and food log. HLD: Discontinue pravastatin initiate atorvastatin 40 mg daily. HTN: Increase enalapril to 10 mg daily. Time Spent: Greater than 30 Minutes Stroke Is this a Stroke Patient?: No Acute Heart Failure Is this a Heart Failure Patient?: No
== END 2020-08-16 14:15 | disposition home or self-care (01) | DRG 638 ==
LOC: ER 11:46 → EH 16:31 → 5 18:02
PROVIDERS: ADMIT Hospitalist; ATTEND Physician Assistant
DX: E11.10 Type 2 diabetes mellitus with ketoacidosis without coma (principal); J44.1 Chronic obstructive pulmonary disease with (acute) exacerbation; E87.1 Hypo-osmolality and hyponatremia; J45.31 Mild persistent asthma with (acute) exacerbation; I10 Essential (primary) hypertension; E78.5 Hyperlipidemia, unspecified; R63.4 Abnormal weight loss; E87.5 Hyperkalemia; Z66 Do not resuscitate; Z23 Encounter for immunization; Z79.82 Long term (current) use of aspirin; Z79.899 Other long term (current) drug therapy; Z79.84 Long term (current) use of oral hypoglycemic drugs; Z79.51 Long term (current) use of inhaled steroids; Z87.891 Personal history of nicotine dependence; Z83.3 Family history of diabetes mellitus; Z80.9 Family history of malignant neoplasm, unspecified; Z82.49 Family history of ischemic heart disease and other diseases of the circulatory system; Z79.52 Long term (current) use of systemic steroids
CPT/HCPCS: 36415; 71046; 80048; 80053; 80061; 81001; 82010; 82803; 82962; 83036; 83735; 83880; 84484; 85025; 85610; 85730; 90471; 90686; 93005; 93010; 94640; 96374; 99221; 99285; G0008; J1650; J1815; J3490; J7030; J7042; J7050

== ENCOUNTER → 2020-09-15 | Outpatient (CLI) | payer OTHER ==
[2020-09-15 09:57] LABS: ABSOLUTE EOSINOPHILS # (AUTO) 0.1 10^3/uL (0.0-0.6); ABSOLUTE LYMPHOCYTES (AUTO) 1.8 10^3/uL (0.5-4.7); ABSOLUTE MONOCYTES (AUTO) 0.5 10^3/uL (0.1-1.4); ABSOLUTE NEUT (AUTO) 4.2 10^3/uL (1.7-8.2); BASOPHILS % (AUTO) 0.5 % (0-2); EOSINOPHILS % (AUTO) 0.8 % (0-6); HEMATOCRIT 36.5 % (36.0-47.0); LYMPHOCYTES % (AUTO) 27.2 % (13-45); MEAN CORPUSCULAR HEMOGLOBIN 29.5 pg (27.0-33.4); MEAN CORPUSCULAR HGB CONC 32.9 g/dL (32.0-36.0); MEAN CORPUSCULAR VOLUME 90 fl (80-97); PLATELET COUNT 305 10^3/uL (150-450); RED BLOOD COUNT 4.06 10^6/uL (3.72-5.28); RED CELL DISTRIBUTION WIDTH 14.6 % (11.5-14.0); SEGMENTED NEUTROPHILS % (AUTO) 64.5 % (42-78); TOTAL CELLS COUNTED % (AUTO) 100 %; WHITE BLOOD COUNT 6.5 10^3/uL (4.0-10.5)
[2020-09-15 10:28] LABS: ANION GAP 8 (5-19); BLOOD UREA NITROGEN 22 mg/dL (7-20); CALCIUM 10.1 mg/dL (8.4-10.2); CARBON DIOXIDE 28 mmol/L (22-30); CHLORIDE 102 mmol/L (98-107); GLUCOSE 157 mg/dL (75-110); POTASSIUM 4.5 mmol/L (3.6-5.0)
[2020-09-16 05:38] LABS: HEPATITIS C VIRUS AB <0.1 s/co ratio (0.0-0.9)
[2020-09-17 16:15] LABS: HEPATITS B SURFACE ANTIGEN Negative (Negative)
== END ==
LOC: CCC 08:34
PROVIDERS: ATTEND Internal Medicine
DX: E11.8 Type 2 diabetes mellitus with unspecified complications (principal); D64.9 Anemia, unspecified; R63.4 Abnormal weight loss; R94.5 Abnormal results of liver function studies
CPT/HCPCS: 36415; 80048; 84443; 85025; 86803; 86804; 87340

== ENCOUNTER → 2020-10-16 | Outpatient (CLI) | payer OTHER ==
--- NOTE | 2020-10-16 13:22 | WOMENS IMAGING REPORT ---
EXAM DESCRIPTION: BETTY HOWE BILATERAL SCREEN IMAGES COMPLETED DATE/TIME: 10/16/2020 11:16 am REASON FOR STUDY: Z12.31 ENCOUNTER FOR SCREENING MAMMOGRAM FOR MALIGNANT NEOPLASM OF HOWAHMC68.31 E NCNTR SCREEN MAMMOGRAM FOR MALIGNANT NEOPLASM OF [place] COMPARISON: None. EXAM PARAMETERS: Standard craniocaudal and mediolateral oblique views of each breast recorded using digital acquisition. Read with the assistance of CAD. .FORMERLY [facility] - [employer] Manager Version 9.2 LIMITATIONS: None. FINDINGS: RIGHT BREAST MASSES: No suspicious masses. CALCIFICATIONS: No new or suspicious calcifications. ARCHITECTURAL DISTORTION: None. ASYMMETRY: Partially circumscribed asymmetry overlies the pectoralis muscle on MLO view. This is con sistent with a lymph node and is probably normal, however the tissue around the node looks slightly d istorted with potential spiculation. OTHER: No other significant findings. LEFT BREAST MASSES: No suspicious masses. CALCIFICATIONS: No new or suspicious calcifications. ARCHITECTURAL DISTORTION: None. ASYMMETRY: None noted. OTHER: No other significant findings. IMPRESSION: Irregular appearance of a lymph node in the right axilla. 0 Incomplete: Needs Additional Imaging Evaluation and/or prior Mammograms for Comparison. BREAST DENSITY: b. There are scattered areas of fibroglandular density. BIRAD: ASSESSMENT: 0 Incomplete: Needs Additional Imaging Evaluation and/or prior Mammograms for C omparison. RECOMMENDATION: RECOMMENDED FOLLOW-UP: Spot compression tomosynthesis right diagnostic mammography and potentially ultrasound. ADDITIONAL RECOMMENDATION- No additional recommendations. The patient will be contacted for additional imaging. COMMENT: The patient has been notified of the results by letter per SA requirements. Additional no tification policies are in place for contacting patient with suspicious or incomplete findings. Quality ID #225: The [employer] recommends an annual screening mammogram for women aged 40 years or over. This facility utilizes a reminder system to ensure that all patients receive reminder letters, and/or direct phone calls for appointments. This includes reminders for routine scr eening mammograms, diagnostic mammograms, or other Breast Imaging Interventions when appropriate. Th is patient will be placed in the appropriate reminder system. TECHNICAL DOCUMENTATION: FINDING NUMBER: (1) ASSESSMENT: (1) JOB ID: [id number] 2010 [employer]- All Rights Reserved Reading location - IP/workstation name: [email or web address]
== END ==
LOC: WI 10:59
PROVIDERS: ATTEND Internal Medicine
DX: Z12.31 Encounter for screening mammogram for malignant neoplasm of breast (principal); N64.89 Other specified disorders of breast
CPT/HCPCS: 77067

== ENCOUNTER → 2020-10-25 | Outpatient (CLI) | payer OTHER ==
--- NOTE | 2020-10-25 12:16 | WOMENS IMAGING REPORT ---
EXAM DESCRIPTION: 3D DX MAMMO RIGHT UNILAT; U/S BREAST UNILAT LIMITED IMAGES COMPLETED DATE/TIME: 10/25/2020 10:58 am; 10/25/2020 11:45 am REASON FOR STUDY: R92.2 RT BREAST ASYMMETRY; RT BREAST R92.2 R92.2 INCONCLUSIVE MAMMOGRAM COMPARISON: 10/16/2020 EXAM PARAMETERS: True lateral cone compression views and tomosynthesis in 2 projections. LIMITATIONS: None. FINDINGS: BREAST LATERALITY: right MASSES: Smooth mass in the tail of the breast persists with compression. CALCIFICATIONS: No new or suspicious calcifications. ARCHITECTURAL DISTORTION: None. ASYMMETRY: None noted. OTHER: No other significant findings. Ultrasound demonstrates 3 small physiologic lymph nodes, the largest 15 x 5 x 11 mm. No suspicious f indings. IMPRESSION: No evidence of malignancy. BREAST DENSITY: b. There are scattered areas of fibroglandular density. BIRAD: ASSESSMENT: 2 Benign findings. RECOMMENDATION: RECOMMENDED FOLLOW UP: Birads 1 or 2: The patient should resume routine screening . SPECIFIC INTERVENTION/IMAGING/CONSULTATION RECOMMENDED:No additional intervention/ imaging/consultati on needed at this time. COMMUNICATION:The imaging findings were not discussed with the patient. Her referring provider has be en notified of the findings. COMMENT: The patient has been notified of the results by letter per SA requirements. Additional no tification policies are in place for contacting patient with suspicious or incomplete findings. Quality ID #225: The [employer] recommends an annual screening mammogram for women aged 40 years or over. This facility utilizes a reminder system to ensure that all patients receive reminder letters, and/or direct phone calls for appointments. This includes reminders for routine scr eening mammograms, diagnostic mammograms, or other Breast Imaging Interventions when appropriate. Th is patient will be placed in the appropriate reminder system. TECHNICAL DOCUMENTATION: FINDING NUMBER: (1) ASSESSMENT: (1) JOB ID: [id number] 2010 [employer]- All Rights Reserved Reading location - IP/workstation name: [email or web address]
== END ==
LOC: WI 12:54
PROVIDERS: ATTEND Internal Medicine
DX: R92.2 Inconclusive mammogram (principal)
CPT/HCPCS: 76642; 77065